=== PATIENT | female | born 1940 | race Caucasian/White ===

== ENCOUNTER → 2017-05-28 | Outpatient (CLI) | payer BC ==
[~2017-05-28] MED LIST: ANAS1TAB19 PO; ASPCH81 PO; CHOL100010 PO; CLTP PO; GABA-112 PO; GLCSUNK PO; OMEG10007 PO; ZOLP5TAB PO
--- NOTE | 2017-05-28 10:40 | DIAGNOSTIC IMAGING REPORT ---
ABDOMEN COMPLETE (US) CLINICAL HISTORY: Abdominal pain and tenderness. History of cholelithiasis, breast cancer and endometrial cancer. COMPARISON STUDY: Abdominal ultrasound June 02, 2016. FINDINGS: There is no biliary ductal dilatation. The common bile duct measures 4 mm in caliber. A small amount of perihepatic ascites is noted. There is slight coarsening of hepatic echotexture. No hepatic lesions are identified by sonography. There are multiple gallstones within the gallbladder. No gallbladder wall thickening is present. The pancreatic body is normal. The head and tail are partially obscured. The size of the spleen is normal. The right kidney measures 10.8 cm and the left measures 10.3 cm. There is no hydronephrosis. The caliber of the abdominal aorta is normal. Visualized portions of the IVC are patent. No renal calculi are identified. IMPRESSION: 1. Cholelithiasis. No gallbladder wall thickening. No biliary ductal dilatation. 2. Small amount of perihepatic ascites. 3. Slight coarsening of hepatic echotexture which raises the possibility of early cirrhosis. Electronically signed by: Gurdeep Vazquez M.D. 05/28/2017 10:39 AM Dictated Date/Time: 05/28/2017 10:17 AM
== END | disposition home or self-care (01) ==
LOC: C.ULTRBC 09:46
PROVIDERS: ATTEND Family Medicine
DX: R10.9 Unspecified abdominal pain (principal); K80.20 Calculus of gallbladder without cholecystitis without obstruction

== ENCOUNTER → 2017-10-16 | Day surgery (SDC) | payer BC ==
[2017-10-08 09:08] VITALS: Ht 177.8 cm; Wt 86.4 kg
[~2017-10-16] VITALS: Ht 177.8 cm; Wt 86.4 kg
[~2017-10-16] MED LIST changes: -ASPCH81 PO; +ASPI81TA28 PO; +CALC-354 PO; -CHOL100010 PO; +CHOL2000 PO; -CLTP PO; -GLCSUNK PO; +GLUC10007 PO; +LIDOCAINE HCL 2% 2 ML VIAL (20MG/ML) ONE; +MIDAZOLAM HCL 1 MG/ML 2ML VIAL ONE; +ONDANSETRON INJ 2 MG/ML 2 ML VIAL ONE; +PROPOFOL IV EMULSION 10 MG/ML 20 ML VIAL IV ONE; +ROSU5TAB PO; +SODIUM CHLORIDE 0.9% 500ML 500 ML IV ONE
[2017-10-16 13:48] VITALS: TEMP 36.5
--- NOTE | 2017-10-16 13:51 | Endo History and Physical ---
History & Physical Date of Service: Oct 16, 2017. Chief Complaint: abnormal image of GI tract Referring Physician: Dr. Alex Galindo History of Present Illness EGHD assess for varices/ abnormal imaging Past Surgical History Hx Cardiac Surgery: No Hx Internal Defibrillator: No Hx Pacemaker: No Hx Abdominal Surgery: Yes (LYN WITH BSO) Hx of Implantable Prosthesis: No Hx Post-Op Nausea and Vomiting: No Hx Cancer Surgery: Yes (RIGHT LUMPECTOMY) Hx Thoracic Surgery: No Hx Orthopedic: No Hx Urinary Tract Surgery: No Family History None Social History Smoking Status: Never Smoker Hx Substance Use: No Hx Alcohol Use: Yes (weekly, red wine) Allergies Coded Allergies: No Known Allergies (Verified , 10/08/17) Current Medications Reported Home Medications Medications Dose Route/Sig Max Daily Dose Days Date Category Crestor (Rosuvastatin Calcium) Unknown Strength Tab Unknown Dose PO QAM 10/08/17 Reported Caltrate 600+D (Calcium Carbonate-Cholecalcife) 1 Tab Tab 1 Tab PO QAM 10/08/17 Reported Aspirin Ec (Aspirin) 81 Mg Tab 81 Mg PO QAM 10/08/17 Reported Vitamin D3 (Cholecalciferol) 2,000 Unit Cap 2,000 Units PO DAILY 10/08/17 Reported Glucosamine (Glucosamine Sulfate) 1,000 Mg Tab 1,000 Mg PO QAM 10/08/17 Reported Neurontin (Gabapentin) 100 Mg Cap 100 Mg PO QAM 10/08/17 Reported Arimidex (Anastrozole) 1 Mg Tab 1 Mg PO DAILY 12/04/14 Rx Ambien (Zolpidem Tartrate) 5 Mg Tab 5 Mg PO HS 10/11/13 Rx [place]-3 (Fish Oil) 1 Ea Cap 1 Cap PO DAILY 03/11/12 Reported Vital Signs Weight (Kilograms): 86.36 Height (Feet): 5 Height (Inches): 10 Date Time Temp Pulse Resp B/P (MAP) Pulse Ox O2 Delivery O2 Flow Rate FiO2 10/16/17 13:48 36.5 72 18 142/72 (95) 95 Room Air Physical Exam General Appearance: WD/WN Respiratory/Chest: Auscultation: breath sounds normal Cardiovascular: Heart Auscultation: RRR Abdomen: Bowel Sounds: normal Inspection & Palpation: soft, non-distended, no tenderness, guarding & rebound Assessment and Plan EGD
--- NOTE | 2017-10-16 15:09 | GI REPORT ---
Procedure Date: 10/16/2017 2:20 PM Procedure: Upper GI endoscopy Indications: Abnormal ultrasound of the GI tract Medicines: Propofol per Anesthesia Complications: No immediate complications. Estimated blood loss: None. Estimated Blood Loss: Estimated blood loss: none. Procedure: Pre-Anesthesia Assessment: - Prior to the procedure, a History and Physical was performed, and patient medications and allergies were reviewed. The patient's tolerance of previous anesthesia was also reviewed. The risks and benefits of the procedure and the sedation options and risks were discussed with the patient. All questions were answered, and informed consent was obtained. Prior Anticoagulants: The patient has taken no previous anticoagulant or antiplatelet agents. ASA Grade Assessment: II - A patient with mild systemic disease. After reviewing the risks and benefits, the patient was deemed in satisfactory condition to undergo the procedure. After obtaining informed consent, the endoscope was passed under direct vision. Throughout the procedure, the patient's blood pressure, pulse, and oxygen saturations were monitored continuously. The scope was introduced through the mouth, and advanced to the second part of duodenum. The upper GI endoscopy was accomplished without difficulty. The patient tolerated the procedure well. Findings: The examined esophagus was normal. A small hiatal hernia was present. The entire examined stomach was normal. The examined duodenum was normal. The cardia and gastric fundus were normal on retroflexion. Retained gastric contents are not identified on this exam. A small hiatal hernia was found. The proximal extent of the gastric folds (end of tubular esophagus) was 41 cm from the incisors. The hiatal narrowing was 42 cm from the incisors. The Z-line was 41 cm from the incisors. Impression: - Normal esophagus. - Small hiatal hernia. - Normal stomach. - Normal examined duodenum. - Small hiatal hernia. - No specimens collected. Recommendation: - Discharge patient to home (ambulatory). - Resume regular diet. - Repeat upper endoscopy in 2 years for surveillance. - Return to GI clinic as previously scheduled. - Return to referring physician as previously scheduled. MD Faustino Sabillon MD 10/16/2017 3:09:15 PM This report has been signed electronically. Note Initiated On: 10/16/2017 2:20 PM I attest to the content of the Intraoperative Record and orders documented therein, exceptions below
--- NOTE | 2017-10-16 15:12 | Discharge Instructions ---
Endoscopy Patient Instructions Date / Procedure(s) Performed Oct 16, 2017. EGD Allergy Information Coded Allergies: No Known Allergies (Verified , 10/08/17) Discharge Date / Findings Oct 16, 2017. EGD HH Medication Instructions Stopped Medication(s): took baby ASA yesterday Restart Stopped Medication(s): Reported Home Medications Medications Dose Route/Sig Max Daily Dose Days Date Category Crestor (Rosuvastatin Calcium) Unknown Strength Tab Unknown Dose PO QAM 10/08/17 Reported Caltrate 600+D (Calcium Carbonate-Cholecalcife) 1 Tab Tab 1 Tab PO QAM 10/08/17 Reported Aspirin Ec (Aspirin) 81 Mg Tab 81 Mg PO QAM 10/08/17 Reported Vitamin D3 (Cholecalciferol) 2,000 Unit Cap 2,000 Units PO DAILY 10/08/17 Reported Glucosamine (Glucosamine Sulfate) 1,000 Mg Tab 1,000 Mg PO QAM 10/08/17 Reported Neurontin (Gabapentin) 100 Mg Cap 100 Mg PO QAM 10/08/17 Reported Arimidex (Anastrozole) 1 Mg Tab 1 Mg PO DAILY 12/04/14 Rx Ambien (Zolpidem Tartrate) 5 Mg Tab 5 Mg PO HS 10/11/13 Rx [place]-3 (Fish Oil) 1 Ea Cap 1 Cap PO DAILY 03/11/12 Reported Reported Home Medications Medications Dose Route/Sig Max Daily Dose Days Date Category Crestor (Rosuvastatin Calcium) Unknown Strength Tab Unknown Dose PO QAM 10/08/17 Reported Caltrate 600+D (Calcium Carbonate-Cholecalcife) 1 Tab Tab 1 Tab PO QAM 10/08/17 Reported Aspirin Ec (Aspirin) 81 Mg Tab 81 Mg PO QAM 10/08/17 Reported Vitamin D3 (Cholecalciferol) 2,000 Unit Cap 2,000 Units PO DAILY 10/08/17 Reported Glucosamine (Glucosamine Sulfate) 1,000 Mg Tab 1,000 Mg PO QAM 10/08/17 Reported Neurontin (Gabapentin) 100 Mg Cap 100 Mg PO QAM 10/08/17 Reported Arimidex (Anastrozole) 1 Mg Tab 1 Mg PO DAILY 12/04/14 Rx Ambien (Zolpidem Tartrate) 5 Mg Tab 5 Mg PO HS 10/11/13 Rx [place]-3 (Fish Oil) 1 Ea Cap 1 Cap PO DAILY 03/11/12 Reported Provider Instructions Activity Restrictions - No exercising or heavy lifting for 24 hours. - Do not drink alcohol the day of the procedure. - Do not drive a car or operate machinery until the day after the procedure. - Do not make any important decisions or sign important papers in 24 hours after the procedure. Following Day: - Return to full activity which may include returning to work/school. Diet Start your diet with liquids and light foods (jello, soup, juice, toast). Then eat your usual diet if not nauseated. Treatment For Common After Affects For mild abdominal pain, bloating, or excessive gas: - Rest - Eat lightly - Lie on right side Follow-Up Information Follow-up with Dr. Alex Galindo as scheduled Anesthesia Information What You Should Know You have had a procedure that required some medicine to reduce anxiety and discomfort. This treatment is called moderate sedation. After receiving the treatment, you may be sleepy, but you will be able to breathe on your own. The effects of the treatment may last for several hours. Follow these instructions along with Activity/Diet recommendations noted above: * Do NOT do anything where dizziness or clumsiness would be dangerous. * Rest quietly at home today, then you can be up and about tomorrow. * Have a responsible person stay with you the rest of today. * You may have had an I.V. today. If so, you may take the dressing off later today. Recommendations Call your doctor if: * Trouble breathing * Continuous vomiting for more than 24 hours * Temperature above 101 degrees * Severe abdominal pain or bloating * Pain not relieved by pain medicine ordered * There is increased drainage or redness from any incision * A large amount of rectal bleeding greater than 2-3 tablespoons. (If you had a polyp/s removed or have hemorrhoids, a small amount of blood - from the rectum is to be expected.) * You have any unanswered questions or concerns. IN THE EVENT OF A SERIOUS EMERGENCY, GO TO THE NEAREST EMERGENCY ROOM Your discharge instructions were prepared by provider Faustino Christine. Patient Instructions Signature Page [place] [place] Patient (or Guardian) Signature/Date: I have read and understand the instructions given to me by my caregivers. Caregiver/RN/Doctor Signature/Date: The above-named patient and/or guardian has received patient instructions on this date. + Original Patient Signature Page (only) stays with chart. Please make copy for patient.
--- NOTE | 2017-10-16 15:30 | Anesthesiology Progress Note ---
Anesthesia Post Op Note Date & Time Oct 16, 2017 at 15:30 Vital Signs Pain Intensity: 0 Vital Signs Past 12 Hours Date Time Temp Pulse Resp B/P (MAP) Pulse Ox O2 Delivery O2 Flow Rate FiO2 10/16/17 15:24 70 18 127/64 (85) 94 Room Air 10/16/17 15:09 73 18 122/55 (77) 98 Room Air 10/16/17 13:48 36.5 72 18 142/72 (95) 95 Room Air Notes Mental Status: alert / awake / arousable, participated in evaluation Pt Amnestic to Procedure: Yes Nausea / Vomiting: adequately controlled Pain: adequately controlled Airway Patency, RR, SpO2: stable & adequate BP & HR: stable & adequate Hydration State: stable & adequate Anesthetic Complications: no major complications apparent
[2017-10-16 15:38] VITALS: BP 135/64; PULSE 56; O2SAT 95
== END | disposition home or self-care (01) ==
LOC: C.GI 13:25
PROVIDERS: ATTEND Internal Medicine Gastroenterology
DX: R93.3 Abnormal findings on diagnostic imaging of other parts of digestive tract (principal); Z90.710 Acquired absence of both cervix and uterus; Z79.82 Long term (current) use of aspirin; Z85.3 Personal history of malignant neoplasm of breast; K44.9 Diaphragmatic hernia without obstruction or gangrene

== ENCOUNTER → 2017-12-04 | Outpatient (CLI) | payer BC ==
[~2017-12-04] MED LIST changes: -LIDOCAINE HCL 2% 2 ML VIAL (20MG/ML) ONE; -MIDAZOLAM HCL 1 MG/ML 2ML VIAL ONE; -ONDANSETRON INJ 2 MG/ML 2 ML VIAL ONE; -PROPOFOL IV EMULSION 10 MG/ML 20 ML VIAL IV ONE; -SODIUM CHLORIDE 0.9% 500ML 500 ML IV ONE
[2017-12-04 13:46] LABS: CREATININE 0.77 mg/dl (0.60-1.20)
== END | disposition home or self-care (01) ==
LOC: C.LABBC 09:30
PROVIDERS: ATTEND Internal Medicine Gastroenterology
DX: R93.5 Abnormal findings on diagnostic imaging of other abdominal regions, including retroperitoneum (principal); K76.9 Liver disease, unspecified

== ENCOUNTER → 2017-12-29 | Outpatient (CLI) | payer BC ==
--- NOTE | 2017-12-29 11:37 | DIAGNOSTIC IMAGING REPORT ---
LEFT KNEE 2 VIEWS HISTORY: Left knee pain. COMPARISON: None. FINDINGS: There is no fracture or dislocation. Moderate joint effusion. Moderate to severe cartilage space narrowing within the medial compartment. There are tricompartmental marginal osteophytes. The bones are osteopenic. No radiopaque foreign bodies. IMPRESSION: 1. Moderate joint effusion. 2. No fractures within the left knee. 3. 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 Electronically signed by: Blade Valle M.D. 12/29/2017 11:35 AM Dictated Date/Time: 12/29/2017 11:34 AM
--- NOTE | 2017-12-29 12:00 | DIAGNOSTIC IMAGING REPORT ---
CHEST 2 VIEWS ROUTINE HISTORY: KNEE PAIN,AZOTEMIA COMPARISON: Chest 06/23/2017. FINDINGS: Surgical clips within the right breast/axilla. The heart remains top normal in size. No pleural effusions. No pneumothorax. Stable linear scarlike densities within the lingula. The lungs are otherwise clear. IMPRESSION: No significant change compared to the prior study. No acute process. Electronically signed by: Blade Valle M.D. 12/29/2017 11:58 AM Dictated Date/Time: 12/29/2017 11:46 AM
== END | disposition home or self-care (01) ==
LOC: C.RAD1850 10:35
PROVIDERS: ATTEND Family Medicine
DX: M25.562 Pain in left knee (principal); Z13.9 Encounter for screening, unspecified; E78.5 Hyperlipidemia, unspecified; R79.89 Other specified abnormal findings of blood chemistry; M25.462 Effusion, left knee; M17.12 Unilateral primary osteoarthritis, left knee

== ENCOUNTER 2020-12-21 16:52 | Inpatient (IN) ==
[2020-12-21 19:27] LABS: INR 1.1 (0.9-1.1); Partial Thromboplastin Ratio 0.9; Partial Thromboplastin Time 22.8 Seconds (21.0-31.0); Prothrombin Time 11.3 Seconds (9.0-12.0)
[2020-12-21 19:37] LABS: Alanine Aminotransferase 86 U/L (12-78); Albumin Level 3.4 gm/dl (3.4-5.0); Aspartate Aminotransferase 121 U/L (15-37); Blood Urea Nitrogen 26 mg/dl (7-18); Carbon Dioxide 25 mmol/L (21-32); Chloride 105 mmol/L (98-107); Est GFR (African American) 42.4; Est GFR (Non-African American) 36.6; Glucose 83 mg/dl (70-99); Potassium 4.5 mmol/L (3.5-5.1); Sodium 137 mmol/L (136-145)
[2020-12-21 19:40] LABS: Albumin Globulin Ratio 0.8 (0.9-2); Alkaline Phosphatase 137 U/L (45-117); Bilirubin,Total 1.3 mg/dl (0.2-1); Total Protein 7.4 gm/dl (6.4-8.2)
[2020-12-21 19:42] LABS: Hematocrit (blood only) 32.9 % (37-47); Hemoglobin 11.1 g/dL (12.0-16.0); Mean Corpuscular Hemoglobin 32.6 pg (25-34); Mean Corpuscular Hgb Conc 33.7 g/dL (32-36); Mean Corpuscular Volume 96.8 fL (80-100); Mean Platelet Volume 11.2 fL (7.4-10.4); Nucleated RBC # (auto) 0.41 K/uL (0-0); Nucleated RBC % (auto) 4.2 %; Platelet Count 28 K/uL (130-400); RDW Coefficient of Variation 17.7 % (11.5-14.5); RDW Standard Deviation 61.1 fL (36.4-46.3); White Blood Count 9.78 K/uL (4.8-10.8)
[2020-12-21 20:08] LABS: ALC (manual) 5.73 K/uL (1.2-3.4); ANC (manual) 3.54 K/uL (1.4-6.5); Howell-Jolly Bodies 1+; Lymphocytes # (manual) 3.12 K/uL (1.2-3.4); Lymphocytes % (manual) 31.9 %; Metamyelocytes # (manual) 0.25 K/uL (0-0); Metamyelocytes % (manual) 2.6 %; Monocytes # (manual) 0.25 K/uL (0.11-0.59); Monocytes % (manual) 2.6 %; Neutrophils # (manual) 3.54 K/uL (1.4-6.5); Neutrophils % (manual) 36.2 %; Polychromasia 1+; Reactive Lymphocytes # (manual) 2.61 K/uL; Reactive Lymphocytes % (manual) 26.7 %
[2020-12-21] MEDS ORDERED: IMMUNE GLOBULIN IV SCH ×2 (21:00)
[2020-12-21] MEDS ORDERED: [UNRECOGNIZED DRUG - OTHER] IV SCH (21:00)
[2020-12-21 21:51] LABS: Influenza A virus by PCR Negative (Neg); Influenza B virus by PCR Negative (Neg); RSV by PCR Negative (Neg); SARS CoV2 RNA(COVID-19) InHosp NEGATIVE (Negative)
--- NOTE | 2020-12-21 22:45 | History & Physical Report ---
Date of Service December 21, 2020 Assessment & Plan Admission and Anticipated Discharge Date Admission Date: 80 yo F w/ PMHx. of breast cancer in 2010, ETOH fatty liver (last drink 2-3 months since last drink), CKD III with significant weight loss and planned liver biopsy at [facility] ([facility] [place] to evaluate for malignance presents after she was found to have a platelet count of 29 at [facility] [place], biopsy was not performed. Thrombocytopenia, ptl 29 progressively decreased from 51 on 12/10 and 120 on 11/14 concern for ITP vs. TTP, patient is not taking any drugs associated with isolated thrombocytopenia, - Hematology consulted Dr. Mata appreciate recs - IVIG tonight and again tomorrow - ordered smear to look for large platelets - follow platelet count - vit. B12, folate, TSH ordered - given slight anemia ordered Leticia to rule out combined autoimmune hemolytic anemia - haptoglobin, lactate dehydrogenase and direct and total bili to evaluate for TTP Weight loss with concern for malignancy with significant weight loss - plan for liver biopsy in early December here at [facility] CKD III with cr. 1.37 up from 1.3 - continue to follow Hx. of breast cancer - continue Anastrazole HLD - continue rosuvastatin Code: full, given POLST form to complete Diet: regular DVT prophylaxis: SCD's holding chemical prophylaxis given thrombocytopenia History of Present Illness Chief Complaint: abnormal labs Primary Care Provider: Alex Galindo [place] is here after she was found to have a low platelet count and was unable to get a liver biopsy at [place] today. Dr. Galindo had this biopsy coordinated but she also had a biopsy that was planned with [facility] for December 28 in [place]. She has not had any bleeding from her gums or with bowel movements. She has lost over 30 lbs over the last 7 months which has stabilized lately. She has noticed severe fatigue and decreased appetite. Social: denies tobacco use Allergies Allergy/AdvReac Type Severity Reaction Status Date / Time No Known Drug Allergies Allergy nkda Verified 12/21/20 20:16 Home Medications Medication Instructions Recorded Confirmed Type albuterol sulfate 2 puff INHALATION QID PRN 12/21/20 12/21/20 History anastrozole 1 mg PO DAILY 12/21/20 12/21/20 History calcium carbonate-vitamin D3 1 tab PO DAILY 12/21/20 12/21/20 History [Calcium 500 + D (D3)] gabapentin 300 mg PO DAILY 12/21/20 12/21/20 History omega-3 fatty acids [[place] 3 Fish 1,000 mg PO DAILY 12/21/20 12/21/20 History Oil] rosuvastatin 10 mg PO DAILY 12/21/20 12/21/20 History Past Med/Surg History Medical History Breast cancer (~2010) 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) History of chemotherapy Monoclonal B-cell lymphocytosis of unknown significance Surgical History H/O bilateral oophorectomy History of hysterectomy History of tonsillectomy History of tooth extraction S/P appendectomy Status post breast lumpectomy Family History Grandmother Hearing loss Other No family history of adverse response to anesthesia No family history of bleeding disorder Social History Smoking Status: Never smoker Second Hand Exposure: No; Hx Alcohol Use: No Hx Substance Use: No Preferred Language: Peruvian Communication Ability: Effective Beliefs That Will Affect Care: None marital status: Current Living Situation: Spouse current occupational status: retired Other Information That Helps Us Care for You: 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 Safe at Home: Yes Assistive Devices: Glasses Review of Systems Review of Systems: Constitutional: denies fever, chills, nausea, vomiting, diaphoresis, night sweats admits fatigue Head: denies trauma, LOC, headache, lightheadedness admits confusion over the last 2 weeks Neuro: denies numbness or tingling ENT: denies rhinorrhea, sore throat Cardiac: denies chest pain, palpiations Pulm: denies shortness of breath and hemoptysis admits cough over the last 40 years somewhat worse lately with small amount of odorless white sputum production GI: denies diarrhea, constipation, dysphagia : denies dysuria Physical Exam Constitutional: + thin; no acute distress Eyes: PERRL - small petechia lateral of the right eye - diplopia ENMT: external ear and nose normal, oropharynx normal Neck: normal visual inspection Respiratory: normal respiratory effort, lungs clear to auscultation Cardiovascular: RRR, no murmur, no edema Gastrointestinal (Abdomen): normal bowel sounds, soft, nontender, no hepatosplenomegaly Skin: - bruising on left antecubital fossa - petechia next to right eye and on lower legs Neurologic: no focal motor deficits Speech / Cognition: normal speech Psychiatric: Orientation: alert and oriented x 3 Results & Data Results & Data ([facility]) Vital Signs (Past 12 Hours) Vital Signs Temp Pulse Pulse Resp BP BP Pulse Ox 12/21/20 21:59 80 21 128/56 L 97 12/21/20 21:47 81 22 137/55 L 97 12/21/20 21:31 83 16 135/56 L 97 12/21/20 21:00 79 18 156/68 H 97 12/21/20 19:18 69 16 141/61 H 96 12/21/20 16:58 36.8 C 80 20 131/91 97 CBC Results Results Complete Blood Count Results: RBC 3.17 M/uL (4.2-5.4) L 12/22/20 WBC 8.62 K/uL (4.8-10.8) 12/22/20 Hgb 10.5 g/dL (12.0-16.0) L 12/22/20 Hct 31.9 % (37-47) L 12/22/20 Plt Count 27 K/uL (130-400) L* 12/22/20 Chemistry (BMP) Results BMP Results: Sodium 137 mmol/L (136-145) 12/22/20 Potassium 4.4 mmol/L (3.5-5.1) 12/22/20 Chloride 108 mmol/L (98-107) H 12/22/20 BUN 31 mg/dl (7-18) H 12/22/20 Creatinine 1.29 mg/dl (0.6-1.2) H 12/22/20 Glucose 84 mg/dl (70-99) 12/22/20 Code Status & VTE Plan VTE Prophylaxis Plan VTE Prophylaxis will be ordered: Yes Supervising Physician Co-Signing Physician Notes Attending addendum: I have physically seen this patient, have supervised the medical residents activities, and agree with the H&P unless as otherwise noted. 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 Mata, give IVIG tonight and again in the morning. Follow serial CBC with differential Check vitamin B12, folic acid and TSH Peripheral smear Additional laboratories to assess for TTP as noted CKD stage III- Creatinine 1.37 with baseline 1.3 Follow serially Breast cancer- Continue anastrozole Remaining orders and notations as noted Resident Activity Tracking Resident Involvement: Resident Care Provided Care Provided: [facility]
[2020-12-21] MEDS: IMMUNE GLOB-GAMUNEX HUMAN 200 ML IV SCH (23:23)
[2020-12-21 23:24] LABS: Appearance Urine Clear (Clear); Bilirubin Urine Negative (Negative); Blood Urine Negative (Negative); Color Urine Yellow; Glucose Urine UA Negative (Negative); Ketones Urine Negative (Negative); Leukocyte Esterase Urine Negative (Negative); Nitrite Urine Negative (Negative); Protein Urine Negative (Negative); Specific Gravity Urine 1.008 (1.000-1.030); Urobilinogen Urine Negative (Negative)
--- NOTE | 2020-12-21 23:31 | Emergency Department Note ---
History of Present Illness General Chief Complaint: Abnormal Labs/Diagnostic Testing Stated Complaint: DECREASED PLATELET COUNT Time Seen by Provider: 12/21/20 18:07 History of Present Illness Provider Complaint: + abnormal lab (Low platelets) Description of abnormal result: Low platelets Symptoms since prior visit: + no new symptoms Associated symptoms: no fever, no chills, no shortness of breath, no rash, no malaise, no nausea and no abdominal pain HPI narrative: 80-year-old female with history of endometrial and breast cancer presents emergency department for low platelets. Patient states she went to [facility] to have a biopsy done and then she was sent here due to low platelets. She states her PCP sent her in. Patient states she sees Jennifer Webster from oncology. She denies any fevers. She denies any rash. She denies any loss of taste or smell. No fever. No cough. No chest pain or difficulty breathing. Home Medications Medication Instructions Recorded Confirmed Type albuterol sulfate 2 puff INHALATION QID PRN 12/21/20 12/21/20 History anastrozole 1 mg PO DAILY 12/21/20 12/21/20 History calcium carbonate-vitamin D3 1 tab PO DAILY 12/21/20 12/21/20 History [Calcium 500 + D (D3)] gabapentin 300 mg PO DAILY 12/21/20 12/21/20 History omega-3 fatty acids [[place] 3 Fish 1,000 mg PO DAILY 12/21/20 12/21/20 History Oil] rosuvastatin 10 mg PO DAILY 12/21/20 12/21/20 History Allergies Allergy/AdvReac Type Severity Reaction Status Date / Time No Known Drug Allergies Allergy nkda Verified 12/21/20 20:16 Past Med/Surg History Medical History Breast cancer (~2010) 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) History of chemotherapy Monoclonal B-cell lymphocytosis of unknown significance Surgical History H/O bilateral oophorectomy History of hysterectomy History of tonsillectomy History of tooth extraction S/P appendectomy Status post breast lumpectomy Family History Grandmother Hearing loss Other No family history of adverse response to anesthesia No family history of bleeding disorder Social History Smoking Status: Never smoker Second Hand Exposure: No; Hx Alcohol Use: No Hx Substance Use: No Preferred Language: Occitan marital status: Current Living Situation: Spouse current occupational status: retired other: Retired Musician Feels Safe at Home: Yes Review of Systems A total of 10 systems reviewed and were otherwise negative Physical Exam Vital Signs: Vital Signs - 24 hr 12/21/20 16:58 12/21/20 19:18 12/21/20 21:00 Temperature 36.8 C Temperature Source Temporal Artery Sc an Pulse Rate 80 Pulse Rate [Right Finger] 69 79 Pulse Rate from Sp O2 Sensor Pulse Rhythm [Righ t Finger] Regular Regular Pulse Strength [Ri ght Finger] Normal Normal Respiratory Rate 20 16 18 Respiratory Effort / Characteristics Non-Labored Sponta neous Non-Labored Non-Labored Sponta neous Respiratory Depth Normal Normal Normal Respiratory Patter n Regular Blood Pressure 131/91 Blood Pressure [Le ft Arm] 141/61 H 156/68 H Blood Pressure Kiera n 104 Blood Pressure Kiera n [Left Arm] 87 97 Blood Pressure Pos ition [Left Arm] Lying Lying Pulse Oximetry 97 96 97 Oxygen Delivery Me thod Room Air Room Air Room Air Sepsis Recent Feve r Within 48 Hours No Sepsis New/Unexpla ined Change in Men phyllis Status No Sepsis Action Take n by Nursing No Action Required 12/21/20 21:31 12/21/20 21:47 12/21/20 21:59 Temperature Temperature Source Pulse Rate Pulse Rate [Right Finger] 83 81 80 Pulse Rate from Sp O2 Sensor Pulse Rhythm [Righ t Finger] Regular Regular Regular Pulse Strength [Ri ght Finger] Normal Normal Respiratory Rate 16 22 21 Respiratory Effort / Characteristics Non-Labored Sponta neous Non-Labored Sponta neous Non-Labored Sponta neous Respiratory Depth Normal Normal Normal Respiratory Patter n Blood Pressure Blood Pressure [Le ft Arm] 135/56 L 137/55 L 128/56 L Blood Pressure Kiera n Blood Pressure Kiera n [Left Arm] 82 82 80 Blood Pressure Pos ition [Left Arm] Lying Semi-fowlers Semi-fowlers Pulse Oximetry 97 97 97 Oxygen Delivery Me thod Room Air Room Air Room Air Sepsis Recent Feve r Within 48 Hours Sepsis New/Unexpla ined Change in Men phyllis Status Sepsis Action Take n by Nursing 12/21/20 23:00 12/21/20 23:30 Temperature Temperature Source Pulse Rate 74 79 Pulse Rate [Right Finger] Pulse Rate from Sp O2 Sensor 71 Pulse Rhythm [Righ t Finger] Pulse Strength [Ri ght Finger] Respiratory Rate 20 21 Respiratory Effort / Characteristics Respiratory Depth Respiratory Patter n Blood Pressure 144/56 H Blood Pressure [Le ft Arm] Blood Pressure Kiera n 85 Blood Pressure Kiera n [Left Arm] Blood Pressure Pos ition [Left Arm] Pulse Oximetry 96 94 Oxygen Delivery Me thod Room Air Room Air Sepsis Recent Feve r Within 48 Hours Sepsis New/Unexpla ined Change in Men phyllis Status Sepsis Action Take n by Nursing Physical Exam: Physical Exam GENERAL: She is oriented to person, place, and time. She appears well-developed and well-nourished. She does not appear distressed. HENT: Exam performed. -Head: Normocephalic and atraumatic. -Right Ear: External ear normal. No mastoid tenderness. -Left Ear: External ear normal. No mastoid tenderness. -Mouth/Throat: The oropharynx is clear and moist. No trismus in the jaw. No dental abscesses or uvula swelling. No oropharyngeal exudate or tonsillar abscesses. Left purpura-like lesion on the right side of the lower lip. EYES: Conjunctivae and EOM are normal. Pupils are equal, round, and reactive to light. Right eye exhibits no discharge. Left eye exhibits no discharge. No scleral icterus. NECK: Normal range of motion. Neck supple. No JVD present. No spinous process tenderness present. No carotid bruit present. No rigidity. No tracheal deviation and normal range of motion present. No Brudzinski's sign and no Kernig's sign noted. CV: Normal rate, regular rhythm, normal heart sounds and intact distal pulses. There is no peripheral edema. Palpable radial pulses bue. PULM/CHEST: Effort normal and breath sounds normal. No respiratory distress. No stridor. She has no wheezes. She has no rales. -Chest Wall: She exhibits no tenderness. ABD: The abdomen is soft. Bowel sounds are normal. She has no distension. No mass is present. There is no tenderness. There is no rebound, no guarding, no Hackett's sign and no tenderness at McBurney's point. Rovsig negative MUSC/SKEL: Normal range of motion. There is no peripheral edema, tenderness or deformity. LYMPH: No cervical adenopathy. NEURO: She is alert and oriented to person, place, and time. She has normal strength. No cranial nerve deficit or sensory deficit. Coordination and gait normal. GCS eye subscore is 4. GCS verbal subscore is 5. GCS motor subscore is 6. Cerebellar tests wnl. SKIN: Skin is warm and dry. She is not diaphoretic. PSYCH: She has a normal mood and affect. Behavior is normal. Judgment and thought content normal. Course Course 1806: The patient was evaluated in room B2. A complete history and physical exam was performed Cardiac monitoring: An order was placed for continuous cardiac monitoring. The monitor shows a rate of 80 with sinus rhythm Patient had labs faxed over on November 14, 2020 the patient had a platelet count of 121. On December 10, 2020 patient platelet count of 52. On December 21, 2020 the patient platelet count of 29. 2028. Vital signs stable. Labs show platelet count of 28. Hemoglobin within normal limits. No evidence of kidney injury. 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 Patient is on anastrozole but not any chemotherapy. Discussed the case with Dr. Forman. Dr. Mata states anastrozole should not cause thrombocytopenia. He recommends against high-dose steroids on this patient and does recommend 1 g/kg of IVIG today and tomorrow Gammagard. Discussed with pharmacy Mary who dosed to Gammagard. Patient will be admitted to the [facility] hospitalist team Dr. Ugalde will be notified. Administered Medications Immune Globulin (Gamunex-C 10%) 200 mls @ 0 mls/hr IV TODAY@2130,2230,2330 TAZ; Protocol Stop: 12/22/20 05:00 Last Admin: 12/21/20 23:23 Dose: 38 mls/hr Documented by: [id number] Discontinued Medications Immune Globulin (Gamunex-C 10%) 50 mls @ 0 mls/hr IV TODAY@2100 TAZ; Protocol Stop: 12/21/20 23:00 Last Infusion: 12/21/20 22:07 Dose: 0 mls/hr Documented by: [id number] Infusion: 12/21/20 22:00 Dose: 275 mls/hr Documented by: [id number] Admin: 12/21/20 21:30 Dose: 38 mls/hr Documented by: [id number] Medical Decision Making Laboratory Data Result diagrams: 12/21/20 19:01 12/21/20 19:01 Lab Results 12/21/20 12/21/20 12/21/20 Range/Units 19:01 19:01 19:01 WBC 9.78 (4.8-10.8) K/uL RBC 3.40 L (4.2-5.4) M/uL Hgb 11.1 L (12.0-16.0) g/dL Hct 32.9 L (37-47) % MCV 96.8 (80-100) fL MCH 32.6 (25-34) pg MCHC 33.7 (32-36) g/dL RDW Std Deviation 61.1 H (36.4-46.3) fL RDW Coeff of Chip 17.7 H (11.5-14.5) % Plt Count 28 L* (130-400) K/uL MPV 11.2 H (7.4-10.4) fL Absolute Nucleated RBC 0.41 H (0-0) K/uL Nucleated RBC % (auto) 4.2 % Neutrophils % (Manual) 36.2 % Lymphocytes % (Manual) 31.9 % Reactive Lymphs % (Man) 26.7 % Monocytes % (Manual) 2.6 % Metamyelocytes % (Man) 2.6 % Neutrophils # (Manual) 3.54 (1.4-6.5) K/uL Total Absolute Neuts 3.54 (1.4-6.5) K/uL Lymphocytes # (Manual) 3.12 (1.2-3.4) K/uL Reactive Lymphs # 2.61 K/uL Total Abs Lymphocytes 5.73 H (1.2-3.4) K/uL Monocytes # (Manual) 0.25 (0.11-0.59) K/uL Metamyelocytes # (Man) 0.25 H (0-0) K/uL Polychromasia 1+ [place] Bodies 1+ PT 11.3 (9.0-12.0) Seconds INR 1.1 (0.9-1.1) APTT 22.8 (21.0-31.0) Seconds PTT Ratio 0.9 Sodium 137 (136-145) mmol/L Potassium 4.5 (3.5-5.1) mmol/L Chloride 105 (98-107) mmol/L Carbon Dioxide 25 (21-32) mmol/L Anion Gap 7.0 (3-11) BUN 26 H (7-18) mg/dl Creatinine 1.37 H (0.6-1.2) mg/dl Est Cr Clr Drug Dosing Not Reportable Est GFR ( Amer) 42.4 Est GFR (Non-Af Amer) 36.6 BUN/Creatinine Ratio 19.0 (10-20) Glucose 83 (70-99) mg/dl Calcium 10.0 (8.5-10.1) mg/dl Total Bilirubin 1.3 H (0.2-1) mg/dl AST 121 H (15-37) U/L ALT 86 H (12-78) U/L Alkaline Phosphatase 137 H (45-117) U/L Total Protein 7.4 (6.4-8.2) gm/dl Albumin 3.4 (3.4-5.0) gm/dl Globulin 4.0 (2.5-4.0) gm/dl Albumin/Globulin Ratio 0.8 L (0.9-2) Urine Color Urine Appearance (Clear) Urine pH (4.5-7.5) Ur Specific Ivins (1.000-1.030) Urine Protein (Negative) Urine Glucose (UA) (Negative) Urine Ketones (Negative) Urine Blood (Negative) Urine Nitrite (Negative) Urine Bilirubin (Negative) Urine Urobilinogen (Negative) Ur Leukocyte Esterase (Negative) COVID-19 Eval Order SARS-CoV-2 (PCR) (Negative) Influenza Type A (PCR) (Neg) Influenza Type B (PCR) (Neg) RSV (RT-PCR) (Neg) 12/21/20 12/21/20 12/21/20 Range/Units 23:18 Unknown Unknown WBC (4.8-10.8) K/uL RBC (4.2-5.4) M/uL Hgb (12.0-16.0) g/dL Hct (37-47) % MCV (80-100) fL MCH (25-34) pg MCHC (32-36) g/dL RDW Std Deviation (36.4-46.3) fL RDW Coeff of Chip (11.5-14.5) % Plt Count (130-400) K/uL MPV (7.4-10.4) fL Absolute Nucleated RBC (0-0) K/uL Nucleated RBC % (auto) % Neutrophils % (Manual) % Lymphocytes % (Manual) % Reactive Lymphs % (Man) % Monocytes % (Manual) % Metamyelocytes % (Man) % Neutrophils # (Manual) (1.4-6.5) K/uL Total Absolute Neuts (1.4-6.5) K/uL Lymphocytes # (Manual) (1.2-3.4) K/uL Reactive Lymphs # K/uL Total Abs Lymphocytes (1.2-3.4) K/uL Monocytes # (Manual) (0.11-0.59) K/uL Metamyelocytes # (Man) (0-0) K/uL Polychromasia [place] Bodies PT (9.0-12.0) Seconds INR (0.9-1.1) APTT (21.0-31.0) Seconds PTT Ratio Sodium (136-145) mmol/L Potassium (3.5-5.1) mmol/L Chloride (98-107) mmol/L Carbon Dioxide (21-32) mmol/L Anion Gap (3-11) BUN (7-18) mg/dl Creatinine (0.6-1.2) mg/dl Est Cr Clr Drug Dosing Est GFR ( Amer) Est GFR (Non-Af Amer) BUN/Creatinine Ratio (10-20) Glucose (70-99) mg/dl Calcium (8.5-10.1) mg/dl Total Bilirubin (0.2-1) mg/dl AST (15-37) U/L ALT (12-78) U/L Alkaline Phosphatase (45-117) U/L Total Protein (6.4-8.2) gm/dl Albumin (3.4-5.0) gm/dl Globulin (2.5-4.0) gm/dl Albumin/Globulin Ratio (0.9-2) Urine Color Yellow Urine Appearance Clear (Clear) Urine pH 7.0 (4.5-7.5) Ur Specific Ivins 1.008 (1.000-1.030) Urine Protein Negative (Negative) Urine Glucose (UA) Negative (Negative) Urine Ketones Negative (Negative) Urine Blood Negative (Negative) Urine Nitrite Negative (Negative) Urine Bilirubin Negative (Negative) Urine Urobilinogen Negative (Negative) Ur Leukocyte Esterase Negative (Negative) COVID-19 Eval Order CovFluRsv at [facility] SARS-CoV-2 (PCR) NEGATIVE (Negative) Influenza Type A (PCR) Negative (Neg) Influenza Type B (PCR) Negative (Neg) RSV (RT-PCR) Negative (Neg) ECG Data Indication: other Rate (beats per minute): 73 Rhythm: normal sinus Findings: + LBBB and + RBBB; no ST depression, no ST elevation and no prolonged QT Additional Comments: QRS 150 MDM Narrative 1807: The patient was evaluated in room B2. A complete history and physical exam was performed Cardiac monitoring: An order was placed for continuous cardiac monitoring. The monitor shows a rate of 80 with sinus rhythm Patient had labs faxed over on November 14, 2020 the patient had a platelet count of 121. On December 10, 2020 patient platelet count of 52. On December 21, 2020 the patient platelet count of 29. 2028. Vital signs stable. Labs show platelet count of 28. Hemoglobin within normal limits. No evidence of kidney injury. 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 Patient is on anastrozole but not any chemotherapy. Discussed the case with Dr. Forman. Dr. Mata states anastrozole should not cause thrombocytopenia. He recommends against high-dose steroids on this patient and does recommend 1 g/kg of IVIG today and tomorrow Gammagard. Discussed with pharmacy Mary who dosed to Gammagard. Patient will be admitted to the [facility] hospitalist team Dr. Ugalde will be notified. Impression & Plan Acute ITP Discharge Plan Visit Data Chief Complaint: Abnormal Labs/Diagnostic Testing Stated Complaint: DECREASED PLATELET COUNT ED Provider: Norm Love Discharge Problem: Acute ITP Patient Disposition: Admitted As Inpatient Forms Stand Alone Forms: My [facility] Prescriptions Prescriptions: No Action anastrozole 1 mg tablet 1 mg PO DAILY RF: 0 gabapentin 300 mg capsule 300 mg PO DAILY RF: 0 albuterol sulfate 90 mcg/actuation HFA aerosol inhaler 2 puff INHALATION QID PRN (Reason: Shortness Of Breath Or Wheezing) RF: 0 [place] 3 Fish Oil Capsule 1,000 mg PO DAILY RF: 0 rosuvastatin 10 mg tablet 10 mg PO DAILY RF: 0 calcium carbonate-vitamin D3 [Calcium 500 + D (D3)] 500 mg(1,250mg) -125 unit Tablet 1 tab PO DAILY RF: 0 Referrals Referrals: Alex Galindo [Primary Care Provider] -
[2020-12-21] MEDS ORDERED: ALBUTEROL HFA 8 GM INHALER INH PRN (23:55)
[2020-12-21] MEDS ORDERED: ACETAMINOPHEN 325 MG TAB PO PRN (23:55)
[2020-12-21] MEDS ORDERED: POLYETHYLENE (MIRALAX) 17 GM PACK PO PRN (23:55)
[2020-12-22] MEDS: IMMUNE GLOB-GAMUNEX HUMAN 200 ML IV SCH ×5 (01:38→14:17)
[2020-12-22 06:19] LABS: Albumin Level 2.8 gm/dl (3.4-5.0); BUN Creatinine Ratio 23.8 (10-20); Bilirubin Direct 0.3 mg/dl (0-0.2); Calcium 8.8 mg/dl (8.5-10.1); Est GFR (African American) 45.6; Est GFR (Non-African American) 39.4; Potassium 4.4 mmol/L (3.5-5.1)
[2020-12-22 06:29] LABS: Albumin Globulin Ratio 0.5 (0.9-2); Bilirubin,Total 1.1 mg/dl (0.2-1); Globulin 5.1 gm/dl (2.5-4.0); Thyroid Stimulating Hormone 1.25 uIu/ml (0.300-4.500); Total Protein 7.9 gm/dl (6.4-8.2)
[2020-12-22 06:42] LABS: Folate (Folic Acid) 10.8 ng/ml (>5.38)
[2020-12-22 06:54] LABS: Hematocrit (blood only) 27.7 % (37-47); Hemoglobin 9.3 g/dL (12.0-16.0); Mean Corpuscular Hgb Conc 33.6 g/dL (32-36); Mean Corpuscular Volume 98.2 fL (80-100); Mean Platelet Volume 9.8 fL (7.4-10.4); Nucleated RBC # (auto) 0.34 K/uL (0-0); Nucleated RBC % (auto) 4.5 %; Platelet Count 20 K/uL (130-400); RDW Coefficient of Variation 17.5 % (11.5-14.5); Red Blood Count 2.82 M/uL (4.2-5.4); White Blood Count 7.63 K/uL (4.8-10.8)
[2020-12-22 07:00] LABS: ALC (manual) 4.65 K/uL (1.2-3.4); ANC (manual) 2.66 K/uL (1.4-6.5); Lymphocytes # (manual) 3.25 K/uL (1.2-3.4); Lymphocytes % (manual) 42.6 %; Metamyelocytes # (manual) 0.07 K/uL (0-0); Metamyelocytes % (manual) 0.9 %; Monocytes # (manual) 0.13 K/uL (0.11-0.59); Monocytes % (manual) 1.7 %; Myelocytes # (manual) 0.13 K/uL (0-0); Myelocytes % (manual) 1.7 %; Neutrophils # (manual) 2.66 K/uL (1.4-6.5); Neutrophils % (manual) 34.8 %; Polychromasia 1+; Reactive Lymphocytes % (manual) 18.3 %
--- NOTE | 2020-12-22 08:14 | Hospitalist Progress Note ---
Date of Service December 22, 2020 Assessment & Plan (1) Acute ITP: 80 yo F w/ PMHx. of breast cancer in 2010, ETOH fatty liver (last drink 2- 3 months since last drink), CKD III with significant weight loss and planned liver biopsy at [facility] ([facility]) to evaluate for malignance presents after she was found to have a platelet count of 29 at [facility], biopsy was not performed. Thrombocytopenia - Concern for ITP vs. TTP vs. malignancy - Patient is not taking any drugs associated with isolated thrombocytopenia, - Hematology consulted spoke to Dr. Dotson with [facility] Heme/Onc, appreciate recommendations -Recommended continue IVIG x2 -Recommended adding prednisone 60 mg p.o. daily, continue at discharge for 5 days -Repeat CBC today at 1800 and tomorrow a.m. -Goal of [id number] platelet count, consider platelet transfusion if decreasing -Peripheral smear ordered and pending -Vit. B12, folate, TSH within normal limits -Negative Leticia rules out autoimmune hemolytic anemia -lactate dehydrogenase elevated, indirect bilirubin elevated follow haptoglobin level results for evaluation of TTP Unexplained weight loss -lost over 30 lbs over the last 7 months - Concern for malignancy - plan for liver biopsy in early December here at [facility] CKD III -Stable near baseline - continue to follow BMP Hx. of breast cancer - continue Anastrazole HLD - continue rosuvastatin Code: Full, given POLST form to complete Diet: regular DVT prophylaxis: SCD's holding chemical prophylaxis given thrombocytopenia Admission and Anticipated Discharge Date Admission Date: December 21, 2020 Supervising Physician Co-Signing Physician Notes I personally examined the patient and verified all briseno points of history and exam, discussed case, and agree with decision making with Dr Katz. Feeling okay. Getting IVIG whenever I see her. Discussed current differentials and plan of care. Vitals noted, in general she is awake and alert pleasant no distress. HEENT normocephalic atraumatic mucous membranes moist. Breathing unlabored no acces navid muscle use good effort. Skin shows no rashes no pallor or icterus. Neuro shows no focal deficits. Thrombocytopeniagetting IVIG, oncology input appreciated (see Dr. Katz's notes of their discussion)follow-up CBC in a.m. Ongoing care. Liver lesionsfor biopsy once possible Otherwise as above Subjective Patient states that she had no symptoms with current thrombocytopenia and was instructed to come to the hospital due to the the findings on labs. She denies any bleeding, bruising, dark stools, bloody vomiting, or any other symptoms currently. Review of Systems Review of Systems: All systems reviewed & are unremarkable except as noted in Subjective Physical Exam Constitutional: WD/WN, vitals as above no acute distress ENMT: external ear and nose normal, oropharynx normal Neck: normal visual inspection Respiratory: normal respiratory effort, lungs clear to auscultation Cardiovascular: RRR, no murmur, no edema Gastrointestinal (Abdomen): normal bowel sounds, soft, nontender, no hepatosplenomegaly Skin: - bruising on left antecubital fossa Neurologic: no focal motor deficits Speech / Cognition: normal speech Psychiatric: Orientation: alert and oriented x 3 Results & Data Results & Data ([facility]) Vital Signs (Past 12 Hours) Vital Signs Temp Pulse Pulse Resp BP BP Pulse Ox 12/22/20 07:33 36.6 C 69 16 126/63 98 12/22/20 03:16 36.7 C 66 16 138/68 95 12/22/20 02:17 78 12/22/20 00:00 36.7 C 83 20 151/71 H 97 12/21/20 23:39 75 22 141/63 H 95 12/21/20 23:30 79 21 94 12/21/20 23:00 74 20 144/56 H 96 12/21/20 21:59 80 21 128/56 L 97 12/21/20 21:47 81 22 137/55 L 97 12/21/20 21:31 83 16 135/56 L 97 12/21/20 21:00 79 18 156/68 H 97 Resident Activity Tracking Resident Involvement: Resident Care Provided Care Provided: Adult Hospital Medicine
[2020-12-22] MEDS: ANASTROZOLE 1 MG TAB PO SCH (08:33)
[2020-12-22] MEDS: GABAPENTIN 300 MG CAP PO SCH (08:33)
[2020-12-22] MEDS: ROSUVASTATIN CALCIUM 10 MG TAB PO SCH (08:33)
[2020-12-22] MEDS ORDERED: [UNRECOGNIZED DRUG - OTHER] IV SCH (09:00)
[2020-12-22] MEDS ORDERED: IMMUNE GLOBULIN IV SCH ×3 (09:00→10:00)
[2020-12-22] MEDS ORDERED: [UNRECOGNIZED DRUG - OTHER] IV SCH (10:00)
[2020-12-22] MEDS: predniSONE 20 MG TAB PO SCH (12:26)
--- NOTE | 2020-12-22 14:40 | Billing Data ---
Date of Service December 22, 2020 Coding Level of Care Code 13455 Subseq Hosp Care Lvl 2
[2020-12-22 19:12] LABS: Mean Corpuscular Hgb Conc 32.9 g/dL (32-36); Mean Platelet Volume 10.5 fL (7.4-10.4); Nucleated RBC # (auto) 0.53 K/uL (0-0); Nucleated RBC % (auto) 6.1 %; Platelet Count 27 K/uL (130-400)
[2020-12-22 19:56] LABS: Basophils # (auto) 0.05 K/uL (0-0.2); Basophils % (auto) 0.6 %; Eosinophils # (auto) 0.08 K/uL (0-0.5); Eosinophils % (auto) 0.9 %; Hematocrit (blood only) 31.9 % (37-47); Hemoglobin 10.5 g/dL (12.0-16.0); Howell-Jolly Bodies Occasional; Immature Granulocytes # (auto) 0.31 K/uL (0.00-0.02); Immature Granulocytes % (auto) 3.6 %; Lymphocytes # (auto) 4.01 K/uL (1.2-3.4); Lymphocytes % (auto) 46.5 %; Macrocytosis Present; Mean Corpuscular Hemoglobin 33.1 pg (25-34); Mean Corpuscular Volume 100.6 fL (80-100); Monocytes # (auto) 0.44 K/uL (0.11-0.59); Monocytes % (auto) 5.1 %; Neutrophils # (auto) 3.73 K/uL (1.4-6.5); Neutrophils % (auto) 43.3 %; Polychromasia 1+; RDW Standard Deviation 60.3 fL (36.4-46.3); Red Blood Count 3.17 M/uL (4.2-5.4); Smudge Cells Present; White Blood Count 8.62 K/uL (4.8-10.8)
--- NOTE | 2020-12-22 20:36 | Billing Data ---
Date of Service December 22, 2020 Coding Level of Care Code 62248 Initial Inpt Care Lvl 3
[2020-12-23] MEDS: ROSUVASTATIN CALCIUM 10 MG TAB PO SCH (07:41)
[2020-12-23] MEDS: predniSONE 20 MG TAB PO SCH (07:41)
[2020-12-23] MEDS: ANASTROZOLE 1 MG TAB PO SCH (07:41)
[2020-12-23] MEDS: GABAPENTIN 300 MG CAP PO SCH (07:41)
[2020-12-23 07:52] LABS: Hematocrit (blood only) 28.7 % (37-47); Hemoglobin 9.5 g/dL (12.0-16.0); Mean Corpuscular Hemoglobin 33.3 pg (25-34); Mean Corpuscular Hgb Conc 33.1 g/dL (32-36); Mean Corpuscular Volume 100.7 fL (80-100); Mean Platelet Volume 11.9 fL (7.4-10.4); Nucleated RBC # (auto) 0.58 K/uL (0-0); Nucleated RBC % (auto) 4.9 %; Platelet Count 27 K/uL (130-400); RDW Coefficient of Variation 16.3 % (11.5-14.5); RDW Standard Deviation 57.6 fL (36.4-46.3); Red Blood Count 2.85 M/uL (4.2-5.4); White Blood Count 11.93 K/uL (4.8-10.8)
[2020-12-23 08:12] LABS: Immature Retic Fraction 29.4 % (3.0-15.9); Reticulated Hemoglobin 39.2 pg (28.2-36.6); Reticulocyte % 4.6 % (0.5-2.0); Reticulocytes # 0.13 10^6/uL (0.02-0.10)
[2020-12-23 08:17] LABS: Basophils # (auto) 0.04 K/uL (0-0.2); Basophils % (auto) 0.3 %; Eosinophils # (auto) 0.04 K/uL (0-0.5); Eosinophils % (auto) 0.3 %; Howell-Jolly Bodies 1+; Immature Granulocytes % (auto) 1.7 %; Lymphocytes # (auto) 5.84 K/uL (1.2-3.4); Microcytosis Present; Monocytes # (auto) 1.05 K/uL (0.11-0.59); Monocytes % (auto) 8.8 %; Neutrophils # (auto) 4.76 K/uL (1.4-6.5); Neutrophils % (auto) 39.9 %; Polychromasia 1+
--- NOTE | 2020-12-23 14:33 | Hospitalist Progress Note ---
Date of Service December 23, 2020 Assessment & Plan (1) Acute ITP: 80 yo F w/ PMHx. of endometrial cancer (DX 2001, s/p TAV), breast cancer (s/p lumpectomy on R in 2010), MGUS, ETOH fatty liver (last drink 2-3 months since last drink), CKD III with significant weight loss over >2 months and planned liver biopsy at [facility] [place] to evaluate for malignance presents after she was found to have a platelet count of 29 at [facility] (with biopsy unable to be completed). Thrombocytopenia -- does appear to have been slowing worsening since possibly Mid-September/October - On review of records from [facility], platelets have been slowly downtrending since mid-September -- 121 (11/14) --> 52 (12/10) --> 29 (12/21) --> 27 (12/22). By patient's account, this is around the same time she got her second COVID-19 vaccination and began losing weight. - Work-up as follows: - Concern for ITP vs. malignancy-related thrombocytopenia - TTP also considered and seems less likely at this time - Iatrogenic/medication-induced thrombocytopenia seems unlikely on review - Adequate reticulocyte index of 2.1 noted in context of marrow function proxy - Vit. B12, folate, TSH within normal limits - Negative Leticia rules out autoimmune hemolytic anemia - LDH, indirect bilirubin elevated -- await haptoglobin results - Peripheral smear, haptoglobin ordered and pending - Hematology consulted spoke to Dr. Dotson with [facility] Heme/Onc, appreciate recommendations - Proceed with ITP-related management - Now s/p IVIG x 2 - Continue prednisone 60mg PO x 5 days upon discharge - Goal of [id number] platelet count, consider platelet transfusion if decreasing - Will require CBC on December 26 as outpatient to measure platelets prior to procedure; may need to consider transfusion if this is the case Concern for Metastatic Malignancy - With known history of endometrial cancer (diagnosed 2001, s/p TAV) and breast cancer (s/p R lumpectomy in 2010) - On history, has lost over 30 lbs over the last 7 months - CT-Chest + A/P from 11/2020 notable for: - "multifocal sclerotic metastasis throughout axial and appendicular system... most pronounced within vertebral bodies and bony pelvis." - "Two ill-defined hepatic lesions measuring up to 1.2 cm which are suspicious for hepatic metastases" - "7mm nodule within the left lower [lung] lobe" - In setting of subacute thrombocytopenia, diplopia, and *reported* gait difficulties, certainly concern for metastatic disease, possibly involving [employer]OR - Patient was scheduled for MRI in November but deferred d/t severe claustrophobia - We spent significant time discussing range of symptoms and strong recommendation to r/o intracranial involvement with MRI - Patient amenable to proceed with MRI-brain with Ativan pretreatment (1mg pre-MRI, 1mg outdoor recreation specialist) -- ordered - Liver biopsy scheduled for Friday 12/29 -- see note above RE: Plt count Subacute Diplopia - On review of [facility] [place], has been ongoing for >1 month and is now - Exotropia appreciated on exam (R eye) - MRI as above Functional Weakness / Familial Concerns for Gait Instability - Granddaughter reporting concerns for new-onset weakness / gait instability over last month - PT, OT ordered for further evaluation - Otherwise as above CKD III - Stable near baseline - continue to follow BMP History of Breast, Endometrial Cancer - continue Anastrazole HLD - continue rosuvastatin Code: Full, given POLST form to complete Diet: regular DVT prophylaxis: SCD's holding chemical prophylaxis given thrombocytopenia Admission and Anticipated Discharge Date Admission Date: December 21, 2020 Supervising Physician Co-Signing Physician Notes I personally examined the patient and verified all briseno points of history and exam, discussed case, and agree with decision making with Dr Bradshaw. No new complaints. Family noted that she was appearing more unsteady on her feet. Review of outpatient notes shows that her diplopia is new, and MRI was recommended, but she is severely claustrophobic. Vitals noted, in general she is awake and alert pleasant no distress. HEENT normocephalic atraumatic mucous membranes moist. Strabismus noted breathing unlabored no accessory muscle use good effort. Skin shows no rashes no pallor or icterus. Neuro shows no focal deficits. Thrombocytopeniagot IVIG, oncology input appreciated, ongoing steroids Diplopiarecommended to get MRI brain. Severely claustrophobic. After discussion with patient, we will pursue this here where we can be more safely aggressive with sedation. Weaknessfamily concern of instabilityPT OT eval and treat Liver lesionsfor biopsy once possible Otherwise as above Subjective No acute events overnight. At the bedside this morning, patient reports feeling well overall. She is anxious about liver biopsy that is coming up, and is concerned that the low platelets might cause difficulties with proceeding with this biopsy. Otherwise, she denies any fevers, chills, chest pain, shortness of breath. Endorses a good appetite. She does endorse continued diplopia that has been ongoing for about a month and a half now. Later this afternoon, I did have the opportunity to speak with granddaughter, who said that over the past 2 months or so, the patient has " not been herself." She notes that she has been more forgetful, calling family members by the wrong name, mixing of pills, and has been more off balanceshe notes that the patient now has to hold onto somebody while walking, compared to the past (just over 2 months ago) this was never really a problem. Also notes that her left eye has been "droopy" and that she has been complaining of double vision. Review of Systems Review of Systems: As per HPI Physical Exam Physical Exam: General: 80-year-old female who is alert, oriented, and appears in no acute distress. HEENT: NCAT. Eyes - Sclera are white, anicteric, and without injection. There is very mild right-sided exotropia. Cardiac: Normal rate and regular rhythm; S1 and S2 present with no murmurs, rubs, or gallops. Pulmonary: Good respiratory effort with symmetric expansion of the chest. No use of accessory muscles. Lungs were clear to auscultation bilaterally with no crackles or wheezes. Abdominal: Normoactive bowel sounds. Abdomen was soft, nondistended, and non- tender to palpation. No hepatomegaly or splenomegaly. Results & Data Results & Data ([facility]) Vital Signs (Past 12 Hours) Vital Signs Temp Pulse Pulse Resp BP Pulse Ox 12/23/20 11:22 36.4 C L 90 19 118/58 L 94 12/23/20 08:30 75 12/23/20 07:12 36.5 C 64 18 116/54 L 93 12/23/20 03:47 36.9 C 60 18 126/69 97
[2020-12-23] MEDS ORDERED: LORazepam 1 MG/2 ML VIAL IV PRN (14:37)
[2020-12-23] MEDS ORDERED: FLUMAZENIL 0.1 MG/1 ML 10 ML VIAL IV PRN (14:41)
--- NOTE | 2020-12-23 14:55 | Billing Data ---
Date of Service December 23, 2020 Coding Level of Care Code 96857 Subseq Hosp Care Lvl 3
--- NOTE | 2020-12-23 20:43 | Electrocardiogram Report ---
Test Reason : Blood Pressure : / mmHG Vent. Rate : 073 BPM Atrial Rate : 073 BPM P-R Int : 166 ms QRS Dur : 150 ms QT Int : 438 ms P-R-T Axes : 086 -51 024 degrees QTc Int : 482 ms Sinus rhythm with marked sinus arrhythmia Right bundle branch block Left anterior fascicular block Bifascicular block Minimal voltage criteria for LVH, may be normal variant Septal infarct , age undetermined . Could be secondary to LAFB Abnormal ECG When compared with ECG of 29-MAR-1998 15:22, (RBBB and left anterior fascicular block) is now Present Septal infarct is now Present Confirmed by Diogenes Salazar ([id number]) on 12/23/2020 8:42:55 PM Referred By: REFERRED SELF Confirmed By:Diogenes Salazar
[2020-12-24 07:42] LABS: Albumin Level 2.9 gm/dl (3.4-5.0); BUN Creatinine Ratio 31.4 (10-20); Calcium 8.9 mg/dl (8.5-10.1); Est GFR (Non-African American) 36.3; Potassium 4.5 mmol/L (3.5-5.1)
[2020-12-24 07:47] LABS: Albumin Globulin Ratio 0.5 (0.9-2); Bilirubin,Total 2.5 mg/dl (0.2-1); Globulin 6.3 gm/dl (2.5-4.0); Total Protein 9.2 gm/dl (6.4-8.2)
[2020-12-24 08:17] LABS: Hematocrit (blood only) 28.8 % (37-47); Hemoglobin 9.6 g/dL (12.0-16.0); Mean Corpuscular Hemoglobin 33.4 pg (25-34); Mean Corpuscular Hgb Conc 33.3 g/dL (32-36); Mean Corpuscular Volume 100.3 fL (80-100); Mean Platelet Volume 10.8 fL (7.4-10.4); Nucleated RBC # (auto) 1.18 K/uL (0-0); Nucleated RBC % (auto) 6.8 %; Platelet Count 32 K/uL (130-400); RDW Coefficient of Variation 16.4 % (11.5-14.5); Red Blood Count 2.87 M/uL (4.2-5.4); White Blood Count 17.22 K/uL (4.8-10.8)
--- NOTE | 2020-12-24 08:17 | Hospitalist Progress Note ---
Date of Service December 24, 2020 Assessment & Plan (1) Acute ITP: 80 yo F w/ PMHx. of endometrial cancer (DX 2001, s/p TAV), breast cancer (s/p lumpectomy on R in 2010), MGUS, ETOH fatty liver (2-3 months since last drink), CKD III with significant weight loss over >2 months and planned liver biopsy at [facility] ([facility]) to evaluate for malignancy presents after she was found to have a platelet count of 29 at [facility] (with biopsy unable to be completed). Thrombocytopenia -- does appear to have been slowing worsening since possibly Mid-September/October - On review of records from [facility], platelets have been slowly downtrending since mid-September -- 121 (11/14) --> 52 (12/10) --> 29 (12/21) --> 27 (12/22). By patient's account, this is around the same time she got her second COVID-19 vaccination and began losing weight. - Likely malignancy-related thrombocytopenia verus possible ITP - Neg work up so far otherwise. See note 12/23/2020. - s/p IVIg. - Continue prednisone 60mg PO x 5 days upon discharge - Platelet count with few points improvement. - For bone marrow biopsy in am as per oncology. Concern for Metastatic Malignancy - With known history of endometrial cancer (diagnosed 2001, s/p TAV) and breast cancer (s/p R lumpectomy in 2010) - On history, has lost over 30 lbs over the last 7 months - CT-Chest + A/P from 11/2020 notable for: - "multifocal sclerotic metastasis throughout axial and appendicular system... most pronounced within vertebral bodies and bony pelvis." - "Two ill-defined hepatic lesions measuring up to 1.2 cm which are suspicious for hepatic metastases" - "7mm nodule within the left lower [lung] lobe" - Brain MRI - no parenchymal metastases, extensive skeletal metastases, mild pain pachymeningeal dural enhancement (nonspecific finding which may be reactive and related to calvarial metastases, dural metastatic disease could appear similar) - Liver biopsy scheduled for Friday 12/29 -- see note above RE: Plt count -Per conversation with Jennifer Webster ordered bone scan for tomorrow and she will plan for bone marrow biopsy tomorrow as well Subacute Diplopia - On review of [facility] chart, has been ongoing for >1 month -CT head here with finding of "fusiform mass involving the right lateral rectus muscle measuring 15 x 4 mm. Likely diagnostic considerations include orbital pseudotumor, Graves' ophthalmopathy, or neoplasm" - Exotropia appreciated on exam (R eye) -Orbit MRI showing diffuse marrow abnormalities consistent with extensive skeletal metastasis as well as enlargement of the right lateral rectus, right inferior rectus and possible enlargement left inferior rectus muscles -Further input per oncology. Functional Weakness / Familial Concerns for Gait Instability - Granddaughter reporting concerns for new-onset weakness / gait instability over last month - PT/OT ordered noted shuffling, slow gait but good mobility and no true instability;recommending return home at discharge - Otherwise as above Moderate protein-calorie malnutrition Nutriton consult. CKD III - Stable near baseline - continue to follow BMP History of Breast, Endometrial Cancer - continue Anastrazole HLD - continue rosuvastatin Code: Full Diet: Regular DVT prophylaxis: SCD's holding chemical prophylaxis given thrombocytopenia Dispo: MedSurg with telemetry Admission and Anticipated Discharge Date Admission Date: December 21, 2020 Supervising Physician Co-Signing Physician Notes Resident Physician Supervision Note: I independently interviewed and examined the patient and verified the briseno history and physical, reviewed labs and image studies, discussed the case with the resident Dr. Katz and agree with the findings and care plan. Subjective No acute events overnight. Patient this morning anxious about MRI. She gets tearful speaking about how she is very claustrophobic and that this has even worsened over the years. I assured her that we will not force her to go through with that if she cannot tolerate it but that we will try to provide sedation to make it tolerable for her. She agrees to this plan though does express that she continues to be worried about it. Review of Systems Review of Systems: All systems reviewed & are unremarkable except as noted in Subjective Physical Exam Physical Exam: General: Alert, oriented, and appears in no acute distress. HEENT: NCAT. Eyes - Sclera are white, anicteric, and without injection. There is very mild right-sided exotropia. Cardiac: Normal rate and regular rhythm; S1 and S2 present with no murmurs, rubs, or gallops. Pulmonary: Good respiratory effort with symmetric expansion of the chest. No use of accessory muscles. Lungs were clear to auscultation bilaterally with no crackles or wheezes. Abdominal: Normoactive bowel sounds. Abdomen was soft, nondistended, and non- tender to palpation. No hepatomegaly or splenomegaly. Results & Data Results & Data ([facility]) Vital Signs (Past 12 Hours) Vital Signs Temp Pulse Pulse Resp BP Pulse Ox 12/24/20 08:11 36.4 C L 74 17 146/69 H 96 12/24/20 02:10 36.4 C L 72 20 124/65 92 12/23/20 23:05 36.5 C 77 20 154/73 H 96 12/23/20 22:25 75 Resident Activity Tracking Resident Involvement: Resident Care Provided Care Provided: Adult Hospital Medicine
[2020-12-24] MEDS: ANASTROZOLE 1 MG TAB PO SCH (08:37)
[2020-12-24] MEDS: predniSONE 20 MG TAB PO SCH (08:38)
[2020-12-24] MEDS: GABAPENTIN 300 MG CAP PO SCH (08:38)
[2020-12-24] MEDS: ROSUVASTATIN CALCIUM 10 MG TAB PO SCH (08:38)
[2020-12-24 08:51] LABS: ALC (manual) 9.73 K/uL (1.2-3.4); ANC (manual) 6.15 K/uL (1.4-6.5); Basophils # (manual) 0.15 K/uL (0-0.2); Basophils % (manual) 0.9 %; Lymphocytes # (manual) 9.73 K/uL (1.2-3.4); Lymphocytes % (manual) 56.5 %; Metamyelocytes # (manual) 0.29 K/uL (0-0); Metamyelocytes % (manual) 1.7 %; Monocytes % (manual) 3.5 %; Neutrophils # (manual) 6.15 K/uL (1.4-6.5); Neutrophils % (manual) 35.7 %; Promyelocytes # (manual) 0.29 K/uL (0-0); Promyelocytes % (manual) 1.7 %; RBC Morphology Unremarkable
[2020-12-24] MEDS: LORazepam 1 MG/2 ML VIAL IV PRN (11:09)
--- NOTE | 2020-12-24 12:56 | Magnetic Resonance Report ---
MRI OF THE BRAIN WITHOUT AND WITH IV CONTRAST CLINICAL HISTORY: Double vision. Skeletal lesions. R/o metastasis/masses. COMPARISON STUDY: Head CT December 18, 2020. TECHNIQUE: Utilizing a 1.5 Ariana magnet and dedicated coil, multiplanar, multiecho imaging of the br ain was performed pre and postcontrast administration. IV administration of 5 mL of Gadavist contras t was uneventful. Thin T1 post contrast imaging with multiplanar reformats was performed. FINDINGS: Please note that the MRI of the orbits will be reported separately. This exam is mildly com promised by motion artifact. There are no foci of restricted diffusion to suggest acute infarct. No a cute intracranial hemorrhage, midline shift or mass effect is present. Brain findings normal. Ventric ular system is normal. Basilar cisterns are patent. There are no extra axial collections. No enhancin g parenchymal lesions are noted. There is mild thin pachymeningeal dural enhancement. Flow-voids for the major intracranial vessels are present. Multiple small white matter T2 hyperintense foci favor mi ld small vessel disease. Extensive marrow replacement is identified within visualized skeletal struct ures. Note is made of asymmetric enlargement of the right lateral rectus and inferior rectus muscles better depicted on the MRI of the orbits. This was shown on prior head CT. IMPRESSION: 1. No parenchymal metastases identified. 2. Extensive skeletal metastases. 3. Asymmetric enlargement and enhancement of the right lateral rectus and inferior rectus muscles bet ter depicted on the MRI of the orbits which will be reported separately. Please report for further de scription. 4. Mild thin pachymeningeal dural enhancement. This is a nonspecific finding which may be reactive an d related to the calvarial metastases. Dural metastatic disease could appear similar. ACT 112: Negative or not required by law. Electronically signed by: Gurdeep Vazquez M.D. 12/24/2020 12:55 PM
--- NOTE | 2020-12-24 13:16 | Magnetic Resonance Report ---
MR orbit wo/w con CLINICAL HISTORY: fusiform mass of right lateral rectus on CT breast carcinoma COMPARISON STUDY: CT scan dated 12/18/2020 FINDINGS: Images were acquired in the axial and coronal planes, before and after the administration of 5 cc of intravenous Gadavist There is abnormal calvarial and vertebral body marrow signal, consistent with the patient's known ext ensive skeletal metastasis. 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 Fast scans were u tilized which limits the resolution of the study. The examination does confirm the presence of an 15 x 6 mm fusiform mass of the right lateral rectus m uscle. The right inferior rectus muscle is also enlarged. There is equivocal mild enlargement of the left inferior rectus. There appears to be relative sparing of the anterior tendon. There is equivocal mild postcontrast enhancement. IMPRESSION: 1. Motion degraded study 2. Diffuse marrow abnormalities consistent with extensive skeletal metastasis 3. Enlargement of the right lateral rectus right inferior rectus and possible enlargement of the left inferior rectus muscles. There appears to be relative sparing of the anterior tendon. 4. While the appearance favors thyroid associated orbitopathy, orbital pseudotumor, IG4 related orbit al disease, sarcoidosis, lymphoma, and metastatic disease could potentially appear similar ACT 112: Negative or not required by law. Electronically signed by: Jaden Brown M.D. 12/24/2020 1:14 PM
[2020-12-25 07:01] LABS: Est GFR (African American) 48.8; Est GFR (Non-African American) 42.1; Potassium 4.7 mmol/L (3.5-5.1)
[2020-12-25 07:02] LABS: BUN Creatinine Ratio 39.5 (10-20); Calcium 8.4 mg/dl (8.5-10.1); Creatinine Clr Calc Pharmacy 38.1 ml/min
[2020-12-25 07:21] LABS: Hematocrit (blood only) 24.6 % (37-47); Hemoglobin 8.3 g/dL (12.0-16.0); Mean Corpuscular Hgb Conc 33.7 g/dL (32-36); Mean Corpuscular Volume 100.8 fL (80-100); Nucleated RBC # (auto) 1.81 K/uL (0-0); Platelet Count 28 K/uL (130-400); RDW Coefficient of Variation 16.7 % (11.5-14.5); RDW Standard Deviation 58.2 fL (36.4-46.3); Red Blood Count 2.44 M/uL (4.2-5.4); White Blood Count 18.06 K/uL (4.8-10.8)
[2020-12-25] MEDS: GABAPENTIN 300 MG CAP PO SCH (07:51)
[2020-12-25] MEDS: predniSONE 20 MG TAB PO SCH (07:51)
[2020-12-25] MEDS: ANASTROZOLE 1 MG TAB PO SCH (07:51)
[2020-12-25] MEDS: ROSUVASTATIN CALCIUM 10 MG TAB PO SCH (07:52)
[2020-12-25 08:17] LABS: ALC (manual) 7.95 K/uL (1.2-3.4); ANC (manual) 8.89 K/uL (1.4-6.5); Lymphocytes # (manual) 7.95 K/uL (1.2-3.4); Metamyelocytes # (manual) 0.31 K/uL (0-0); Metamyelocytes % (manual) 1.7 %; Monocytes # (manual) 0.61 K/uL (0.11-0.59); Monocytes % (manual) 3.4 %; Myelocytes # (manual) 0.31 K/uL (0-0); Myelocytes % (manual) 1.7 %; Neutrophils # (manual) 8.89 K/uL (1.4-6.5); Neutrophils % (manual) 49.2 %; Rouleaux 1+
--- NOTE | 2020-12-25 09:39 | Hospitalist Progress Note ---
Date of Service December 25, 2020 Assessment & Plan (1) Acute ITP: 80 yo F w/ PMHx. of endometrial cancer (DX 2001, s/p TAV), breast cancer (s/p lumpectomy on R in 2010), MGUS, ETOH fatty liver (2-3 months since last drink), CKD III with significant weight loss over >2 months and planned liver biopsy at [facility] ([facility]) to evaluate for malignancy presents after she was found to have a platelet count of 29 at [facility] (with biopsy unable to be completed). Thrombocytopenia -- does appear to have been slowing worsening since possibly Mid-September/October - On review of records from [facility], platelets have been slowly downtrending since mid-September -- 121 (11/14) --> 52 (12/10) --> 29 (12/21) --> 27 (12/22). By patient's account, this is around the same time she got her second COVID-19 vaccination and began losing weight. - Likely malignancy-related thrombocytopenia verus possible ITP - Neg work up so far otherwise. See note 12/23/2020. - s/p IVIg. - Continue prednisone 60mg PO x 5 days upon discharge - Platelet count 28k - Bone marrow biopsy today as per oncology -- likely results will be provided as outpatient - Plan for possible discharge tomorrow if no signs of bleeding after biopsy Concern for Metastatic Malignancy - With known history of endometrial cancer (diagnosed 2001, s/p TAV) and breast cancer (s/p R lumpectomy in 2010) - On history, has lost over 30 lbs over the last 7 months - CT-Chest + A/P from 11/2020 notable for: - "multifocal sclerotic metastasis throughout axial and appendicular system... most pronounced within vertebral bodies and bony pelvis." - "Two ill-defined hepatic lesions measuring up to 1.2 cm which are suspicious for hepatic metastases" - "7mm nodule within the left lower [lung] lobe" - Brain MRI - no parenchymal metastases, extensive skeletal metastases, mild pain pachymeningeal dural enhancement (nonspecific finding which may be reactive and related to calvarial metastases, dural metastatic disease could appear similar) - Liver biopsy scheduled for Friday 12/29 -- see note above RE: Plt count -Per conversation with Jennifer Webster ordered bone scan (scheduled 12/26 at 10AM), biopsy today Subacute Diplopia - On review of [facility] chart, has been ongoing for >1 month -CT head here with finding of "fusiform mass involving the right lateral rectus muscle measuring 15 x 4 mm. Likely diagnostic considerations include orbital pseudotumor, Graves' ophthalmopathy, or neoplasm" - Exotropia appreciated on exam (R eye) -Orbit MRI showing diffuse marrow abnormalities consistent with extensive skeletal metastasis as well as enlargement of the right lateral rectus, right inferior rectus and possible enlargement left inferior rectus muscles -Further input per oncology. -will need optho referral on discharge. Functional Weakness / Familial Concerns for Gait Instability - Granddaughter reporting concerns for new-onset weakness / gait instability over last month - PT/OT ordered noted shuffling, slow gait but good mobility and no true instability;recommending return home at discharge - Otherwise as above Moderate protein-calorie malnutrition Nutrition consult. CKD III - Stable near baseline - continue to follow BMP History of Breast, Endometrial Cancer - continue Anastrazole HLD - continue rosuvastatin Code: Full Diet: Regular DVT prophylaxis: SCD's holding chemical prophylaxis given thrombocytopenia Dispo: MedSurg with telemetry Admission and Anticipated Discharge Date Admission Date: December 21, 2020 Supervising Physician Co-Signing Physician Notes Resident Physician Supervision Note: I independently interviewed and examined the patient and verified the briseno history and physical, reviewed labs and image studies, discussed the case with the resident Dr. Katz and agree with the findings and care plan. Subjective Patient seen at bedside this morning. Updated her on results of MRI. Also informed her that heme-onc would be by today to discuss bone marrow biopsy. She is a bit worried about what this means in terms of prognosis. I tell her that everything will depend on the results of the tests. She understands and is agreeable to the plan. Review of Systems Review of Systems: All systems reviewed & are unremarkable except as noted in Subjective Physical Exam Physical Exam: General: Alert, oriented, and appears in no acute distress. HEENT: NCAT. Eyes - Sclera are white, anicteric, and without injection. There is very mild right-sided exotropia. Cardiac: Normal rate and regular rhythm; S1 and S2 present with no murmurs, rubs, or gallops. Pulmonary: Good respiratory effort with symmetric expansion of the chest. No use of accessory muscles. Lungs were clear to auscultation bilaterally with no crackles or wheezes. Abdominal: Normoactive bowel sounds. Abdomen was soft, nondistended, and non- tender to palpation. No hepatomegaly or splenomegaly. Results & Data Results & Data ([facility]) Vital Signs (Past 12 Hours) Vital Signs Temp Pulse Pulse Resp BP Pulse Ox 12/25/20 04:00 36.4 C L 67 16 106/52 L 95 12/24/20 23:10 36.6 C 74 16 122/64 94 12/24/20 22:20 83 Resident Activity Tracking Resident Involvement: Resident Care Provided Care Provided: Adult Hospital Medicine
[2020-12-25] MEDS ORDERED: LORazepam 1 MG/2 ML VIAL IV PRN ×2 (10:35→11:00)
[2020-12-25] MEDS ORDERED: LORazepam 1 MG/2 ML VIAL IV ONE (11:00)
[2020-12-25] MEDS ORDERED: LIDOCAINE 1% LOCAL 20 ML VIAL ONE (11:32)
--- NOTE | 2020-12-25 17:25 | Procedure Note ---
Procedure Note Date of Service [facility] Inpatient/location: 2W 262-[address] 1940 DATE OF PROCEDURE 12/25/2020 Procedure Bone marrow biopsy and aspirate Indication History of breast cancer r/o metastatic bone marrow involvement vs a underlying early lymphoproliferative disease vs ITP Technique Nursing time out procedure was performed per protocol. The risks and benefits were explained. Written informed consent was obtained. Today's platelet count is 28,000 11:26am Given Ativan 1 mg IV by Mehreen BUSH, for anxiety The patient was prepped and draped in usual sterile fashion placed in the left lateral decubitus position the right posterior superior iliac spine was located without difficulty. 1% lidocaine without epinephrine was used for local anesthesia without complications. Using a standard 11-gauge bone marrow biopsy needle the left posterior-superior iliac spine was entered without difficulty. Excellent spicules were obtained the aspiration sent for standard histopathology, flow cytometry, cytogenetics and molecular studies. The left posterior-superior iliac spine was then re-entered with a standard 11-gauge needle it was advanced into the bone cavity. A bone marrow biopsy was obtained without any complications. A sterile 4x4 drsg was used to achieve homeostasis of the biopsy site, mild bleeding was noted. A clean dry pressure dressing was then applied. Again no bleeding, hematoma or significant ecchymosis was seen. The patient denied any pain. This procedure was preformed by myself along with Daylin Allen PA-C assisting. ASSESSMENT AND PLAN: The procedure was well tolerated. The patient had mild bleeding, which was easily controlled. She is to remain in bed lying on her back for no less than 30 minutes. Post procedure she reports no pain or acute concerns. The patient will have a repeat CBC drawn tomorrow morning, if her platelet count is > 20,000 and she has no s/s of bleeding from a Heme/Onc prospective she is ok for discharge. She is to get a repeat CBC drawn weekly until seen in the office on 01/10/21 A follow up is scheduled on 01/10/21 at the clinic to go over these result. Jennifer JEFFERS/AOCNP [facility] Medical [facility], Hematology Coding
[2020-12-26 08:51] LABS: Hematocrit (blood only) 23.9 % (37-47); Mean Corpuscular Hemoglobin 33.8 pg (25-34); Mean Corpuscular Hgb Conc 33.5 g/dL (32-36); Mean Corpuscular Volume 100.8 fL (80-100); Mean Platelet Volume 11.5 fL (7.4-10.4); Platelet Count 26 K/uL (130-400); RDW Coefficient of Variation 17.3 % (11.5-14.5); Red Blood Count 2.37 M/uL (4.2-5.4); White Blood Count 20.84 K/uL (4.8-10.8)
[2020-12-26] MEDS: ANASTROZOLE 1 MG TAB PO SCH (08:51)
[2020-12-26 08:52] LABS: ALC (manual) 10.42 K/uL (1.2-3.4); ANC (manual) 8.77 K/uL (1.4-6.5); Lymphocytes # (manual) 10.42 K/uL (1.2-3.4); Metamyelocytes # (manual) 0.38 K/uL (0-0); Metamyelocytes % (manual) 1.8 %; Monocytes # (manual) 0.73 K/uL (0.11-0.59); Monocytes % (manual) 3.5 %; Myelocytes # (manual) 0.54 K/uL (0-0); Myelocytes % (manual) 2.6 %; Neutrophils # (manual) 8.77 K/uL (1.4-6.5); Neutrophils % (manual) 42.1 %; Polychromasia 1+
[2020-12-26] MEDS: predniSONE 20 MG TAB PO SCH (08:52)
[2020-12-26] MEDS: ROSUVASTATIN CALCIUM 10 MG TAB PO SCH (08:52)
[2020-12-26] MEDS: GABAPENTIN 300 MG CAP PO SCH (08:52)
--- NOTE | 2020-12-26 09:26 | Hospitalist Progress Note ---
Date of Service December 26, 2020 Assessment & Plan (1) Acute ITP: 80 yo F w/ PMHx. of endometrial cancer (DX 2001, s/p TAV), breast cancer (s/p lumpectomy on R in 2010), MGUS, ETOH fatty liver (2-3 months since last drink), CKD III with significant weight loss over >2 months and planned liver biopsy at [facility] [place] to evaluate for malignancy presents after she was found to have a platelet count of 29 at [facility] (with biopsy unable to be completed). Thrombocytopenia -- does appear to have been slowing worsening since possibly Mid-September/October - On review of records from [facility], platelets have been slowly downtrending since mid-September -- 121 (11/14) --> 52 (12/10) --> 29 (12/21) --> 27 (12/22). By patient's account, this is around the same time she got her second COVID-19 vaccination and began losing weight. - Likely malignancy-related thrombocytopenia verus possible ITP - Neg work up so far otherwise. See note 12/23/2020. - s/p IVIg. - Finished 5 days of prednisone. - Platelet count with few points improvement. - Bone marrow biopsy performed per oncology -- outpatient follow-up on 01/10/21 Concern for Metastatic Malignancy - With known history of endometrial cancer (diagnosed 2001, s/p TAV) and breast cancer (s/p R lumpectomy in 2010) - On history, has lost over 30 lbs over the last 7 months - CT-Chest + A/P from 11/2020 notable for: - "multifocal sclerotic metastasis throughout axial and appendicular system... most pronounced within vertebral bodies and bony pelvis." - "Two ill-defined hepatic lesions measuring up to 1.2 cm which are suspiciou s for hepatic metastases" - "7mm nodule within the left lower [lung] lobe" - Brain MRI - no parenchymal metastases, extensive skeletal metastases, mild pain pachymeningeal dural enhancement (nonspecific finding which may be reactive and related to calvarial metastases, dural metastatic disease could appear similar) - Underwent Marrow biopsy on 12/26/2020 with evidence of diffuse osseous metastatic disease - Liver biopsy at [facility] had been cancelled when patient had been scheduled [place] [facility] -- attempted to reschedule for while she is in hospital but Radiology reporting she is high-risk for bleed with fine-needle biopsy and would likely require percutaneous biopsy, which cannot be performed here - Contacted Heme-Onc re: this and they agree that liver biopsy can be postponed indefinitely pending marrow biopsy results - If malignancy found on marrow bx, likely liver biopsy would not be necessary to do at that point - Palliative Care consult placed Social/Disposition - Patient's son today reporting concerns of patient returning home as he feels she is not able to fully care for herself and only support is her who has dementia - Will work with Case Management for discharge needs and addressing possible options for her - Patient has also been intermittently confused after needing Ativan multiple times for tests/procedure and has not returned to her baseline - She is alert and oriented x3 but does not seem to grasp her situation despite multiple times explaining the possibilities - Continue to monitor Subacute Diplopia - On review of [facility] [place], has been ongoing for >1 month -CT head here with finding of "fusiform mass involving the right lateral rectus muscle measuring 15 x 4 mm. Likely diagnostic considerations include orbital pseudotumor, Graves' ophthalmopathy, or neoplasm" - Exotropia appreciated on exam (R eye) -Orbit MRI showing diffuse marrow abnormalities consistent with extensive skeletal metastasis as well as enlargement of the right lateral rectus, right inferior rectus and possible enlargement left inferior rectus muscles -Further input per oncology. Functional Weakness / Familial Concerns for Gait Instability - Granddaughter reporting concerns for new-onset weakness / gait instability over last month - PT/OT ordered noted shuffling, slow gait but good mobility and no true instability;recommending return home at discharge - Otherwise as above Moderate protein-calorie malnutrition Nutrition consult. CKD III - Stable near baseline History of Breast, Endometrial Cancer - continue Anastrazole - discuss discontinuation at oncology follow up appt. HLD - continue rosuvastatin - discuss discontinuation at PCP follow up appt. Code: Full Diet: Regular DVT prophylaxis: SCD's holding chemical prophylaxis given thrombocytopenia Dispo: MedSurg with telemetry Admission and Anticipated Discharge Date Admission Date: December 21, 2020 Supervising Physician Co-Signing Physician Notes Resident Physician Supervision Note: I independently interviewed and examined the patient and verified the briseno history and physical, reviewed labs and image studies, discussed the case with the resident Dr. Katz and agree with the findings and care plan. Subjective Overnight resident called to patient's bedside as she had been concerned over her recent tests and situation. Night resident explained that many of her tests are pending and she will be updated as we find out results. This AM she was pleasant but remained very anxious. She asked about when she would get her bone marrow biopsy results--I explained that she will follow up with heme-onc for discussion of this later this month. She seemed satisfied with this explanation. No other symptoms reported. Review of Systems Review of Systems: All systems reviewed & are unremarkable except as noted in Subjective Physical Exam Physical Exam: General: Alert, oriented, and appears in no acute distress. HEENT: NCAT. Eyes - Sclera are white, anicteric, and without injection. There is very mild right-sided exotropia. Cardiac: Normal rate and regular rhythm; S1 and S2 present with no murmurs, rubs, or gallops. Pulmonary: Good respiratory effort with symmetric expansion of the chest. No use of accessory muscles. Lungs were clear to auscultation bilaterally with no crackles or wheezes. Abdominal: Normoactive bowel sounds. Abdomen was soft, nondistended, and non- tender to palpation. No hepatomegaly or splenomegaly. Results & Data Results & Data ([facility]) Vital Signs (Past 12 Hours) Vital Signs Temp Pulse Pulse Resp BP Pulse Ox 12/26/20 07:45 75 12/26/20 07:09 36.7 C 72 16 122/65 95 12/26/20 02:50 36.6 C 90 22 155/68 H 95 12/25/20 22:59 36.4 C L 75 18 108/57 L 94 Resident Activity Tracking Resident Involvement: Resident Care Provided Care Provided: Adult [facility] Medicine
[2020-12-26] MEDS: LORazepam 1 MG/2 ML VIAL IV PRN (13:03)
--- NOTE | 2020-12-26 13:50 | Nuclear Medicine Report ---
WHOLE-BODY NUCLEAR BONE SCAN CLINICAL HISTORY: Metastatic survey. COMPARISON STUDY: CT scan of the chest, abdomen, and pelvis dated 12/05/2020. CT of the brain dated . TECHNIQUE: Three hours following the IV administration of 26.6 mCi of technetium 99m MDP, whole body nuclear bone scan was performed in the anterior and posterior projections. FINDINGS: There is extensive diffuse patchy abnormal tracer deposition identified throughout the skeleton consi stent with bony metastatic disease. This is most apparent in the calvarium where there are numerous l esions. Subtle lesions are also identified within the humeri, femora, the ribs, throughout the spine, and in the bony pelvis. Typically degenerative uptake is identified in the shoulders, hips, and knees. There is expected excreted activity within the renal collecting system and bladder. IMPRESSION: There is evidence of diffuse osseous metastatic disease, which was also shown on recent C T imaging. ACT 112: Negative or not required by law. Electronically signed by: Ernst Ford M.D. 12/26/2020 1:49 PM
[2020-12-27 06:30] LABS: BUN Creatinine Ratio 38.9 (10-20); Calcium 8.7 mg/dl (8.5-10.1); Creatinine Clr Calc Pharmacy 37.1 ml/min; Est GFR (African American) 47.4; Est GFR (Non-African American) 40.9; Potassium 4.5 mmol/L (3.5-5.1)
[2020-12-27 06:41] LABS: Hematocrit (blood only) 24.2 % (37-47); Hemoglobin 8.1 g/dL (12.0-16.0); Mean Corpuscular Hemoglobin 34.2 pg (25-34); Mean Corpuscular Hgb Conc 33.5 g/dL (32-36); Mean Corpuscular Volume 102.1 fL (80-100); Mean Platelet Volume 11.3 fL (7.4-10.4); Nucleated RBC # (auto) 3.02 K/uL (0-0); Nucleated RBC % (auto) 12.1 %; Platelet Count 41 K/uL (130-400); RDW Coefficient of Variation 17.5 % (11.5-14.5); RDW Standard Deviation 59.6 fL (36.4-46.3); Red Blood Count 2.37 M/uL (4.2-5.4); White Blood Count 25.08 K/uL (4.8-10.8)
[2020-12-27] MEDS: GABAPENTIN 300 MG CAP PO SCH (08:06)
[2020-12-27] MEDS: ANASTROZOLE 1 MG TAB PO SCH (08:06)
[2020-12-27] MEDS: ROSUVASTATIN CALCIUM 10 MG TAB PO SCH (08:06)
[2020-12-27 08:09] LABS: ALC (manual) 12.51 K/uL (1.2-3.4); ANC (manual) 10.78 K/uL (1.4-6.5); Lymphocytes # (manual) 12.51 K/uL (1.2-3.4); Lymphocytes % (manual) 49.9 %; Metamyelocytes # (manual) 0.45 K/uL (0-0); Metamyelocytes % (manual) 1.8 %; Monocytes # (manual) 0.88 K/uL (0.11-0.59); Monocytes % (manual) 3.5 %; Myelocytes # (manual) 0.45 K/uL (0-0); Myelocytes % (manual) 1.8 %; Neutrophils # (manual) 10.78 K/uL (1.4-6.5)
--- NOTE | 2020-12-27 12:54 | Hospitalist Progress Note ---
Date of Service December 27, 2020 Assessment & Plan (1) Acute ITP: 80 yo F w/ PMHx. of endometrial cancer (DX 2001, s/p TAV), breast cancer (s/p lumpectomy on R in 2010), MGUS, ETOH fatty liver (2-3 months since last drink), CKD III with significant weight loss over >2 months and planned liver biopsy at [facility] ([facility] [place]) to evaluate for malignancy presents after she was found to have a platelet count of 29 at [facility] (with biopsy unable to be completed). Thrombocytopenia -- does appear to have been slowing worsening since possibly Mid-September/October - On review of records from [facility], platelets have been slowly downtrending since mid-September -- 121 (11/14) --> 52 (12/10) --> 29 (12/21) --> 27 (12/22). By patient's account, this is around the same time she got her second COVID-19 vaccination and began losing weight. - Likely malignancy-related thrombocytopenia verus possible ITP - Neg work up so far otherwise. See note 12/23/2020. - s/p IVIg. - Finished 5 days of prednisone. - Platelet count with improvement today to 41 - Bone marrow biopsy performed per oncology -- outpatient follow-up on 01/10/21 Concern for Metastatic Malignancy - With known history of endometrial cancer (diagnosed 2001, s/p TAV) and breast cancer (s/p R lumpectomy in 2010) - On history, has lost over 30 lbs over the last 7 months - CT-Chest + A/P from 11/2020 notable for: - "multifocal sclerotic metastasis throughout axial and appendicular system... most pronounced within vertebral bodies and bony pelvis." - "Two ill-defined hepatic lesions measuring up to 1.2 cm which are suspicious for hepatic metastases" - "7mm nodule within the left lower [lung] lobe" - Brain MRI - no parenchymal metastases, extensive skeletal metastases, mild pain pachymeningeal dural enhancement (nonspecific finding which may be reactive and related to calvarial metastases, dural metastatic disease could appear similar) - Underwent Marrow biopsy on 12/26/2020 with evidence of diffuse osseous metastatic disease - Liver biopsy at [facility] had been cancelled when patient had been scheduled at [facility] -- attempted to reschedule for while she is in hospital but Radiology reporting she is high-risk for bleed with fine-needle biopsy and would likely require percutaneous biopsy, which cannot be performed here - Contacted Heme-Onc re: this and they agree that liver biopsy can be postponed indefinitely pending marrow biopsy results - If malignancy found on marrow bx, likely liver biopsy would not be necessary to do at that point - Palliative Care consult placed for discussion of goals of care Social/Disposition - Patient's son today reporting concerns of patient returning home as he feels she is not able to fully care for herself and only support is her who has dementia - Will work with Case Management for discharge needs and addressing possible options for her - Patient has also been intermittently confused after needing Ativan multiple times for tests/procedure and has not returned to her baseline - She is alert and oriented x3 but does not seem to grasp her situation despite multiple times explaining the possibilities -As above palliative care consult placed, await recommendations - Continue to monitor Subacute Diplopia - On review of [facility] chart, has been ongoing for >1 month -CT head here with finding of "fusiform mass involving the right lateral rectus muscle measuring 15 x 4 mm. Likely diagnostic considerations include orbital pseudotumor, Graves' ophthalmopathy, or neoplasm" - Exotropia appreciated on exam (R eye) -Orbit MRI showing diffuse marrow abnormalities consistent with extensive skeletal metastasis as well as enlargement of the right lateral rectus, right inferior rectus and possible enlargement left inferior rectus muscles -Further input per oncology. Functional Weakness / Familial Concerns for Gait Instability - Granddaughter reporting concerns for new-onset weakness / gait instability over last month - PT/OT ordered noted shuffling, slow gait but good mobility and no true instability;recommending return home at discharge - Otherwise as above Moderate protein-calorie malnutrition Nutrition consult. CKD III - Stable near baseline History of Breast, Endometrial Cancer - continue Anastrazole - discuss discontinuation at oncology follow up appt. HLD - continue rosuvastatin - discuss discontinuation at PCP follow up appt. Code: Full Diet: Regular DVT prophylaxis: SCD's holding chemical prophylaxis given thrombocytopenia Dispo: MedSurg with telemetry Admission and Anticipated Discharge Date Admission Date: December 21, 2020 Subjective Patient seen sitting at bedside chair this morning. No new symptoms reported, patient was abbreviated her platelets had improved somewhat today. She asked about her liver biopsy again today. I explained that she will be seen heme-onc as an outpatient to discuss the results of her bone marrow biopsy and that liver biopsy might not be needed depending on that. She asked specifically whether she was going to "live or " and I explained again that all her testing so far points to significant metastatic disease and that her prognosis is poor. She expresses understanding. Review of Systems Review of Systems: All systems reviewed & are unremarkable except as noted in Subjective Physical Exam Physical Exam: General: Alert, oriented, and appears in no acute distress. HEENT: NCAT. Eyes - Sclera are white, anicteric, and without injection. There is very mild right-sided exotropia. Cardiac: Normal rate and regular rhythm; S1 and S2 present with no murmurs, rubs, or gallops. Pulmonary: Good respiratory effort with symmetric expansion of the chest. No use of accessory muscles. Lungs were clear to auscultation bilaterally with no crackles or wheezes. Abdominal: Normoactive bowel sounds. Abdomen was soft, nondistended, and non- tender to palpation. No hepatomegaly or splenomegaly. Results & Data Results & Data ([facility]) Vital Signs (Past 12 Hours) Vital Signs Temp Pulse Pulse Resp BP Pulse Ox 12/27/20 11:36 36.9 C 85 18 114/64 97 12/27/20 08:00 36.3 C L 77 18 149/75 H 96 12/27/20 07:22 72 12/27/20 03:31 36.3 C L 75 16 115/62 94
--- NOTE | 2020-12-27 14:09 | Palliative Care Consultation ---
Date of Consultation December 27, 2020 Assessment & Plan (1) Palliative care encounter: Ms. Vale is a 80 year old female who presented to the [facility] after being unable to complete a liver biopsy at [facility] due to a low platelet count of 29. Additional PMH includes: endometrial cancer (DX 2001, s/p TAV), breast cancer (s/p lumpectomy on R in 2010), MGUS, ETOH fatty liver, CKD III with significant weight loss over >2 months. She had plans to have the liver biopsy to evaluate further for disease metastasis. She has received IVIG with Dr. Mata recently and the plan is to try to evaluate whether she has ITP vs TTP. Palliative Medicine was consulted to discuss goals of care. Hailey and I had a sonia conversation. She was AAO x 3 and was able to discuss what's important to her. She is a life long musician and expressed that she would like to return home and is looking forward to a garden libertarian with her musician friends on her birthday, [birth year]. We discussed her overall goals and after discussing code status, she would want to be a DNR/DNI, which is now reflected in the computer. She would still like to pursue treatment, including plt transfusions and chemo/IVIG if able. We talked about SNF vs home upon discharge. She expressed that she has the home she has so that she can stay there [place] and accessible for wheelchair, etc. We discussed home with home health/palliative care, which she was receptive to. I did reach out to Ellie, her daughter, and left a VM. She, her granddaughter called and the patient did also give me her number earlier. She called and I called her back. She stated that if she is to go home, She is to be the caregiver at home. She is very receptive to having home health palliative care on board upon discharge. Hailey does have a son, Morris who is a nurse in [place], who she requested I didnt speak to first about this as he is 'so far away'. We discussed her code status and she said that she is supportive of this. I know case management talked with her son, Jose Alfredo Ashton who is also a nurse is in support of this plan. Case management and Hospitalists are aware. No symptom management needs at this time. Palliative care will follow peripherally. Tentative DC tomorrow. (2) Acute ITP: (3) Weakness: (4) Breast cancer: History of Present Illness Reason for Consultation: Goals of care Requesting Physician: Dr. Roddy Gillespie Attending Physician: Ermelinda Ceja MD History of Present Illness Ms. Vale is a 80 year old female who presented to the [facility] after being unable to complete a liver biopsy at [facility] due to a low platelet count of 29. Additional PMH includes: endometrial cancer (DX 2001, s/p TAV), breast cancer (s/p lumpectomy on R in 2010), MGUS, ETOH fatty liver, CKD III with significant weight loss over >2 months. She had plans to have the liver biopsy to evaluate further for disease metastasis. She has received IVIG with Dr. Mata recently and the plan is to try to evaluate whether she has ITP vs TTP. Palliative Medicine was consulted to discuss goals of care. Please see A/P for f urther information. Thank you kindly for involving palliative medicine with this patient. Allergies Allergy/AdvReac Type Severity Reaction Status Date / Time No Known Drug Allergies Allergy nkda Verified 12/21/20 20:16 Home Medications Medication Instructions Recorded Confirmed Type albuterol sulfate 2 puff INHALATION QID PRN 12/21/20 12/21/20 History anastrozole 1 mg PO DAILY 12/21/20 12/21/20 History calcium carbonate-vitamin D3 1 tab PO DAILY 12/21/20 12/21/20 History [Calcium 500 + D (D3)] gabapentin 300 mg PO DAILY 12/21/20 12/21/20 History omega-3 fatty acids [[place] 3 Fish 1,000 mg PO DAILY 12/21/20 12/21/20 History Oil] rosuvastatin 10 mg PO DAILY 12/21/20 12/21/20 History Patient History Medical History (Updated 12/27/20 @ 14:09 by AURY Shearer) Breast cancer (~2010) Breast cancer 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) History of chemotherapy Monoclonal B-cell lymphocytosis of unknown significance Palliative care encounter Weakness Surgical History H/O bilateral oophorectomy History of hysterectomy History of tonsillectomy History of tooth extraction S/P appendectomy Status post breast lumpectomy Family History Grandmother Hearing loss Other No family history of adverse response to anesthesia No family history of bleeding disorder Social History Smoking Status: Never smoker Second Hand Exposure: No; Hx Alcohol Use: No Hx Substance Use: No Preferred Language: Lithuanian Communication Ability: Effective Beliefs That Will Affect Care: None marital status: Current Living Situation: Spouse current occupational status: retired Other Information That Helps Us Care for You: 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 Safe at Home: Yes Assistive Devices: Walker Review of Systems Review of Systems: [place] System Assessment Scale: Pain: 0/3 Tiredness: 1/3 Shortness of breath: 0/3 lack of Appetite: 1/3 PPS: 40% Physical Exam Constitutional: + thin, + frail appearing, cooperative and comfortable ENMT: Nose: + dry nasal mucous membranes Neck: trachea midline, no thyromegaly Respiratory: normal respiratory effort, lungs clear to auscultation Cardiovascular: RRR, no murmur, no edema Gastrointestinal (Abdomen): normal bowel sounds, soft, nontender, no hepatosplenomegaly Skin: no rashes, warm and dry Psychiatric: A+Ox3, euthymic affect Results & Data ([facility]) Vital Signs (Past 12 Hours) Vital Signs Temp Pulse Pulse Resp BP Pulse Ox 12/27/20 11:36 36.9 C 85 18 114/64 97 12/27/20 08:00 36.3 C L 77 18 149/75 H 96 12/27/20 07:22 72 12/27/20 03:31 36.3 C L 75 16 115/62 94 PG Care Time/CCT Total # of Minutes Spent Total Time Spent with Patient: Total time spent is greater than 50% in coordination of care (as documented) at patient's floor/unit and/or counseling patient: 100 minutes with > 50% of that time spent assessing the patient, discussing goals of care with patient and family, and collaborating with IDT Coding Level of Care Code 41315 Inpt Consult Level 4 Diagnoses Palliative care encounter Z51.5 Acute ITP D69.3 Weakness R53.1 Breast cancer C50.919 Time Spent (min) 100
--- NOTE | 2020-12-27 17:25 | Discharge Summary ---
Date of Service December 27, 2020 Admission HPI Per Admitting Provider Hailey Vale is here after she was found to have a low platelet count and was unable to get a liver biopsy at [place] today. Dr. Galindo had this biopsy coordinated but she also had a biopsy that was planned with [facility] for December 28 in [place]. She has not had any bleeding from her gums or with bowel movements. She has lost over 30 lbs over the last 7 months which has stabilized lately. She has noticed severe fatigue and decreased appetite. Social: denies tobacco use Principal Diagnosis Thrombocytopenia Discharge Exam Constitutional well developed and well nourished Respiratory normal respiratory effort, lungs clear to auscultation Cardiovascular Rate/Rhythm: regular rate and regular rhythm Gastrointestinal (Abdomen) Inspection/Auscultation: abdomen normal to inspection and normal bowel sounds Discharge Data Allergies Allergy/AdvReac Type Severity Reaction Status Date / Time No Known Drug Allergies Allergy nkda Verified 12/21/20 20:16 Consultations 12/21/20 20:43 ED Decision to Admit Stat 12/21/20 23:55 Consult Hematology Routine 12/26/20 15:25 Consult Palliative Care Routine Ordered Studies 12/24/20 10:54 MR brain wo/w con Routine MR orbit wo/w con Routine Hospital Course (1) Acute ITP: 80 yo F w/ PMHx. of endometrial cancer (DX 2001, s/p TAV), breast cancer (s/p lumpectomy on R in 2010), MGUS, ETOH fatty liver (2-3 months since last drink), CKD III with significant weight loss over >2 months and planned liver biopsy at [facility] ([facility]) to evaluate for malignancy presents after she was found to have a platelet count of 29 at [facility] (with biopsy unable to be completed). Thrombocytopenia -- appears to have been slowly worsening since possibly Mid- September/October - On review of records from [facility], platelets had been slowly downtrending since mid-September - Likely malignancy-related thrombocytopenia verus possible ITP - Neg work up for other etiology. - Adequate reticulocyte index of 2.1 noted in context of marrow function proxy - Vit. B12, folate, TSH within normal limits - Negative Leticia rules out autoimmune hemolytic anemia - LDH, indirect bilirubin elevated -- and haptoglobin level decreased - points to hemolysis. - s/p IVIg x2 and Received 5 days of prednisone for possible ITP - per oncology. - Platelet count [id number] slightly at discharge - Bone marrow biopsy performed per oncology -- outpatient follow-up scheduled on 01/10/21 Concern for Metastatic Malignancy - With known history of endometrial cancer (diagnosed 2001, s/p TAV) and breast cancer (s/p R lumpectomy in 2010) -30 pound weight loss over 7 months - CT-Chest + A/P from 11/2020 notable for: - "multifocal sclerotic metastasis throughout axial and appendicular system... most pronounced within vertebral bodies and bony pelvis." - "Two ill-defined hepatic lesions measuring up to 1.2 cm which are suspicious for hepatic metastases" - "7mm nodule within the left lower [lung] lobe" - Brain MRI - no parenchymal metastases, extensive skeletal metastases, mild pain pachymeningeal dural enhancement (nonspecific finding which may be reactive and related to calvarial metastases, dural metastatic disease could appear similar) - Underwent Marrow biopsy on 12/26/2020 with evidence of diffuse osseous metastatic disease - Liver biopsy at [facility] had been cancelled when patient had been scheduled at [facility] -- attempted to reschedule while she was in hospital but Radiology reporting she was high-risk for bleed with fine-needle biopsy and would likely require percutaneous biopsy, which cannot be performed here - Contacted Heme-Onc re: this and they agree that liver biopsy can be postponed indefinitely pending marrow biopsy results - If malignancy found on marrow bx, likely liver biopsy would not be necessary to do at that point - Palliative Care consulted - Patient was receptive to Home Health/Palliative Care - This was arranged through Case Management with [facility] starting 12/29/2020 - Will be DC'd home with and granddaughter is her food bagging machine operator Subacute Diplopia -CT head here with finding of "fusiform mass involving the right lateral rectus muscle measuring 15 x 4 mm. Likely diagnostic considerations include orbital pseudotumor, Graves' ophthalmopathy, or neoplasm" - Exotropia appreciated on exam (R eye) -Orbit MRI showing diffuse marrow abnormalities consistent with extensive skeletal metastasis as well as enlargement of the right lateral rectus, right inferior rectus and possible enlargement left inferior rectus muscles -Further input per oncology as outpatient History of Breast, Endometrial Cancer - continued Anastrazole - discuss discontinuation at oncology follow up appt. HLD - continued rosuvastatin - discuss discontinuation at PCP follow up appt Dispo: Home with Home Health (2) Breast cancer: (3) Weakness: (4) Palliative care encounter: Total Time Total Time Spent Total Time Spent (In Minutes): See attending attestation Discharge Plan Discharge Items Patient Disposition: Home - Home Health Services Reason For Visit: THROMBOCYTOPENIA Discharge Diagnosis: Thrombocytopenia Activity: Per Instructions section Non-emergency contact: Primary Care Provider and Oncologist Call non-emergency contact if: you have any medication questions and your symptoms worsen Follow-up/Referrals: Alex Galindo [Primary Care Provider] - Diet: Regular Addtl Attending Provider Instructions: You were admitted to [facility] due to low platelet count. While admitted you were treated with IVIG and steroids and were also given 2 platelet transfusions, which did stabilize your platelet count. As discussed, you will be discharged home with home health palliative care. They will visit your home on 12/29/2020. Hematology-Oncology saw you and performed a bone marrow biopsy to evaluate you for possible malignancy as the cause for your low platelets. You should continue to follow with Hematology-Oncology to continue to discuss your previous cancer diagnoses and next steps for establishing whether any additional treatment is required in light of your new signs & symptoms. You have an appointment on 01/10/21 to discuss the findings of your biopsy. You also had brain and orbit MRIs which found metastases in your bones, as well enlargement of your eye muscles, which is likely the cause for your complaint of double vision. We recommend that you see an tool engineer as an outpatient to discuss these findings. Please see your primary care provider to get this referral. If you have any signs of uncontrolled bleeding such as bloody stool bloody vomiting, very dark stools, increased bruising, or any other concerning signs and symptoms, please contact your healthcare provider or seek emergency medical care. Thank you for allowing us to participate in your care. Pending Studies at Discharge: No Stand-Alone Forms: [employer], Smoking Cessation Medications and DC Order Prescriptions: Continued anastrozole 1 mg tablet 1 mg PO DAILY RF: 0 gabapentin 300 mg capsule 300 mg PO DAILY RF: 0 albuterol sulfate 90 mcg/actuation HFA aerosol inhaler 2 puff INHALATION QID PRN (Reason: Shortness Of Breath Or Wheezing) RF: 0 omega-3 fatty acids Capsule 1,000 mg PO DAILY RF: 0 rosuvastatin 10 mg tablet 10 mg PO DAILY RF: 0 calcium carbonate-vitamin D3 500 mg(1,250mg) -125 unit Tablet 1 tab PO DAILY RF: 0 Discharge Orders: Discharge Order (Routine); Ordered 12/27/20 Ordered By: Dima Beasley/Other Patient Handouts: Thrombocytopenia, Platelets Admission Data Admit Date/Time: 12/21/20 22:12 Attending Provider: Ermelinda Ceja Admit Provider: Irvin Burns Primary Care Provider: Alex Galindo Other Providers: Jassi Patrick ; Vincent Dotson ; Nilesh Ku ; Kim Hawkins ; [facility],Home Healthcare Other Interventions: Discharge Summary Assessment (RN) Last Done: 12/27/20 17:01 Supervising Physician Co-Signing Physician Notes Resident Physician Supervision Note: I independently interviewed and examined the patient and verified the briseno history and physical, reviewed labs and image studies, discussed the case with the resident Dr. Katz and agree with the findings and care plan. Resident Activity Tracking Resident Involvement: Resident Care Provided Care Provided: Adult Hospital Medicine
--- NOTE | 2021-01-07 20:01 | Coding Query ---
CODING QUERY To promote full compliance with coding requirements relating to patient care, provider participation is requested in all cases of invoice coder uncertainty. Please assist us with the question(s) below: Coding Question(s): Please review the Bone Marrow Pathology report and provide a diagnosis. Thank you. James Oviedo [facility] Physician's Response(s): Metastatic Breast Cancer, B-cell Lymphoproliferative disorder Principal Diagnosis: "that condition established after study, to be chiefly responsible for occasioning the admission of the patient to the hospital for care." Co-Existing Principal Diagnosis: "when two or more diagnoses equally meet the criteria for principal diagnosis as determined by the circumstances of admission, diagnostic work up, and/or therapy provided, and the Alphabetic Index, Tabular List, or another coding guideline does not provide sequencing direction, any one of the diagnoses may be sequenced first." "When the physician has documented what appears to be a current diagnosis in the body of the record, but has not included the diagnosis in the final diagnostic statement, the physician should be asked whether the diagnosis should be added." (Source Coding Clinic 2 QTR90. p3-4) REENA
== END 2020-12-27 17:14 | disposition home health service (06) | DRG 813 ==
LOC: ED 16:52 → SUATTDRO 22:12 → 2W 22:12